=== PATIENT | male | born 1945 | race American Indian/Alaskan Native ===

== ENCOUNTER 2018-02-20 16:11 | Inpatient (IN) | payer MEDICARE ==
[2018-02-20] MEDS ORDERED: NACL 0.9% 500 ML 500 ML IV ONE (16:46)
[2018-02-20] MEDS ORDERED: TYLENOL PR STA (16:46)
[2018-02-20] MEDS ORDERED: NACL 0.9% 1000 ML 1,000 ML ONE (16:51)
--- NOTE | 2018-02-20 16:52 | Emergency Department Report ---
HPI - General Chief Complaint: Recheck/Abnormal Lab/Rx Time Seen by Provider: 02/20/18 16:48 - HPI HPI: 72-year-old Afro-[place] male presents to the emergency department via EMS from [facility] with complaints of decreased oral intake and some abnormal labs. The patient has a past medical history of dementia, [id number] diabetes, chronic encephalopathy, hemiplegia following subarachnoid hemorrhage, hypertension. Patient is listing at being nonverbal at baseline. He usually feeds with a pured diet. He presents with a large sacral decubitus ulcer. Patient is a prior historian. He presents with a fever. ED Past Medical Hx - Past Medical History Previous Medical History?: Yes Hx Hypertension: Yes Hx CVA: Yes (x5) Hx Diabetes: Yes Hx Dementia: Yes Additional medical history: subarachnoid hemorrhage - Social History Smoking Status: Unknown if ever smoked - Medications Home Medications: Home Medications Medication Instructions Recorded Confirmed Last Taken Type RX: Aspirin EC [Aspirin Enteric 81 mg PO QDAY #30 tablet 05/10/15 Unknown Rx Coated TAB] RX: Enoxaparin [Lovenox] 40 mg SUB-Q DAILY #7 syringe 05/10/15 Unknown Rx RX: Losartan [Cozaar] 50 mg PO QDAY #30 tablet 05/10/15 Unknown Rx ED Review of Systems ROS: Stated complaint: ABNORMAL LABS Other details as noted in HPI Comment: Unobtainable due to pts medical conditions Physical Exam - Physical Exam Vital Signs: Vital Signs 02/20/18 16:35 Temperature 102.2 F H Pulse Rate 96 H Respiratory 22 Rate Blood Pressure 112/94 [Left] O2 Sat by Pulse 96 Oximetry Physical Exam: GENERAL: The patient is well-developed well-nourished. HEENT: Normocephalic. Atraumatic. Patient has moist mucous membranes. EYES: Extraocular motions are intact. Pupils are equal and reactive to light bilaterally. NECK: Supple. Trachea is midline. CHEST/LUNGS: There is some rhonchi heard to the right base. Mild tachypnea but no accessory muscle use. There is no respiratory distress noted. HEART/CARDIOVASCULAR: Regular. There is no tachycardia. There is no obvious murmur. ABDOMEN: Abdomen is soft, nontender. Patient has normal bowel sounds. There is no abdominal distention. SKIN: Skin is warm and dry. NEURO: Patient is awake but nonverbal and confused. Withdraws from painful stimuli. MUSCULOSKELETAL: There is no tenderness or deformity. There is no evidence of acute injury. ED Course Vital Signs 02/20/18 16:35 Temperature 102.2 F H Pulse Rate 96 H Respiratory 22 Rate Blood Pressure 112/94 [Left] O2 Sat by Pulse 96 Oximetry ED Medical Decision Making - Lab Data Result diagrams: 02/20/18 16:52 02/20/18 21:09 - EKG Data -: EKG Interpreted by Me EKG shows normal: sinus rhythm, axis, intervals, QRS complexes (Q waves of the septal leads), ST-T waves Rate: normal - EKG Data When compared to previous EKG there are: no significant change Interpretation: unchanged when compared t (05/2015) - Radiology Data Radiology results: image reviewed interpreted by me: X-ray of the chest shows some infiltrate to the right perihilar and basilar area of the lungs. - Medical Decision Making Patient presents to the emergency department from his detention with some abnormal labs and a fever. Patient has sepsis secondary to pneumonia. He has hyponatremia, leukocytosis, elevated lactic acid level and some renal insufficiency. Blood and urine cultures have been sent and the patient was immediately started on antibiotics. He was given some IV fluid resuscitation. Chest x-ray shows right basilar pneumonia. He was accepted for admission by the hospitalist Dr. Rueda. - Differential Diagnosis Sepsis, Pneumonia, UTI, Viral URI Critical Care Time: No Critical care attestation.: If time is entered above; I have spent that time in minutes in the direct care of this critically ill patient, excluding procedure time. ED Disposition Clinical Impression: Hypernatremia Sepsis Qualifiers: Sepsis type: sepsis due to unspecified organism Qualified Code(s): A41.9 - Sepsis, unspecified organism Pneumonia Qualifiers: Pneumonia type: due to unspecified organism Laterality: right Lung location: lower lobe of lung Qualified Code(s): J18.1 - Lobar pneumonia, unspecified organism Acute renal failure Qualifiers: Acute renal failure type: unspecified Qualified Code(s): N17.9 - Acute kidney failure, unspecified Disposition: OP ADMIT IP TO THIS HOSP Is pt being admited?: Yes Condition: Serious Time of Disposition: 17:50
[2018-02-20] MEDS ORDERED: LEVAQUIN 750MG/150ML 750 MG/150 ML BAG IV ONE (16:54)
[2018-02-20 17:05] LABS: Basophils # (Auto) 0.1 K/mm3 (0.0-0.1); Basophils % (Auto) 0.6 % (0.0-1.8); Hematocrit 43.9 % (35.5-45.6); Hemoglobin 14.2 gm/dl (11.8-15.2); Lymphocytes # (Auto) 1.1 K/mm3 (1.2-5.4); Lymphocytes % (Auto) 6.6 % (13.4-35.0); Mean Corpuscular HGB Conc 32 % (32-34); Mean Corpuscular Volume 96 fl (84-94); Platelet Count 212 K/mm3 (140-440); Red Blood Count 4.56 M/mm3 (3.65-5.03); Red Cell Distribution Width 13.2 % (13.2-15.2)
[2018-02-20 17:15] LABS: INR 1.21 (0.87-1.13)
[2018-02-20 17:29] LABS: Albumin 3.5 g/dL (3.9-5); Calcium 9.3 mg/dL (8.4-10.2)
--- NOTE | 2018-02-20 17:35 | XRay Report ---
FINAL REPORT EXAM: XR CHEST 1V AP HISTORY: possible Sepsis TECHNIQUE: Chest single AP PRIORS: None. FINDINGS: There is focal increased density in the right infrahilar region. Left lung demonstrates no acute umana ges. The cardiac and mediastinal contours are unremarkable. No pleural fluid collection seen. The pul monary vasculature is unremarkable. IMPRESSION: Right lower lobe infiltrates suspect pneumonia. Continued followup recommended to document clearance
[2018-02-20] MEDS ORDERED: NACL 0.9% 1000 ML 1,000 ML IV ONE (20:04)
[2018-02-20] MEDS ORDERED: NACL 0.45% 1000 ML 1,000 ML IV SCH (21:00)
--- NOTE | 2018-02-20 21:08 | History and Physical Report ---
History of Present Illness Date of examination: 02/20/18 Date of admission: 02/20/18 17:50 Chief complaint: Decreased responsiveness for 1 day History of present illness: 72-year-old -[place] male resident of [facility] with history of hypertension ,cerebrovascular accident, diabetes and Dementia ,bed ridden sent from [place] for poor PO intake decreased responsiveness .No fever or chills.patient on pureed diet.No fever or Chills. Past Medical History Previous Medical History?: Yes Hypertension: Yes CVA: Yes (x5) Diabetes: Yes Dementia: Yes Additional medical history: subarachnoid hemorrhage Social History Smoking Status: Unknown if ever smoked Surgical History Not available Family History Htn Medications Home Medications: Home Medications Medication Instructions Recorded Confirmed Last Taken Type Aspirin EC [Aspirin Enteric Coated 81 mg PO QDAY #30 tablet 05/10/15 Unknown Rx TAB] Enoxaparin [Lovenox] 40 mg SUB-Q DAILY #7 syringe 05/10/15 Unknown Rx Losartan [Cozaar] 50 mg PO QDAY #30 tablet 05/10/15 Unknown Rx Review of systems ROS: Stated complaint: ABNORMAL LABS Other details as noted in HPI Comment: Unobtainable due to pts medical conditions Medications and Allergies Allergies Allergy/AdvReac Type Severity Reaction Status Date / Time No Known Allergies Allergy Verified 05/08/15 08:51 Home Medications Medication Instructions Recorded Confirmed Last Taken Type Aspirin EC [Aspirin Enteric Coated 81 mg PO QDAY #30 tablet 05/10/15 Unknown Rx TAB] Enoxaparin [Lovenox] 40 mg SUB-Q DAILY #7 syringe 05/10/15 Unknown Rx Losartan [Cozaar] 50 mg PO QDAY #30 tablet 05/10/15 Unknown Rx Active Meds: Active Medications Sodium Chloride (Nacl 0.9% 1000 Ml) 1,000 mls @ 999 mls/hr IV BOLUS ONE Stop: 02/20/18 21:04 Last Admin: 02/20/18 20:00 Dose: 999 mls/hr Documented by: Sodium Chloride (Nacl 0.45% 1000 Ml) 1,000 mls @ 125 mls/hr IV DIRECT REKHA Exam - Physical Exam Narrative exam: Unresponsive - Constitutional Vitals: Temp Pulse Resp BP Pulse Ox 97.7 F 91 H 18 94/56 96 02/20/18 20:28 02/20/18 20:00 02/20/18 20:28 02/20/18 20:28 02/20/18 20:00 General appearance: Present: no acute distress, well-nourished - EENT Eyes: Present: PERRL ENT: hearing intact, clear oral mucosa - Neck Neck: Present: supple, normal ROM - Respiratory Respiratory effort: normal Respiratory: bilateral: CTA - Cardiovascular Heart rate: 97 Rhythm: regular Heart Sounds: Present: S1 & S2. Absent: rub, click - Extremities Extremities: no ischemia, pulses intact, pulses symmetrical, No edema Peripheral Pulses: within normal limits - Abdominal General gastrointestinal: Present: soft, non-tender, non-distended, normal bowel sounds Male genitourinary: Present: normal - Rectal Rectal Exam: deferred - Integumentary Integumentary: Present: clear, warm, dry - Musculoskeletal Musculoskeletal: generalized weakness - Psychiatric Psychiatric: other (Not alert or oriented) - Neurologic Neurologic: moves all extremities, other (Decreased responsiveness) - Allied Health Allied health notes reviewed: nursing, case management Results - Labs CBC & Chem 7: 02/20/18 16:52 02/20/18 16:52 Labs: Laboratory Last Values WBC 16.3 K/mm3 (4.5-11.0) H 02/20/18 16:52 RBC 4.56 M/mm3 (3.65-5.03) 02/20/18 16:52 Hgb 14.2 gm/dl (11.8-15.2) 02/20/18 16:52 Hct 43.9 % (35.5-45.6) 02/20/18 16:52 MCV 96 fl (84-94) H 02/20/18 16:52 MCH 31 pg (28-32) 02/20/18 16:52 MCHC 32 % (32-34) 02/20/18 16:52 RDW 13.2 % (13.2-15.2) 02/20/18 16:52 Plt Count 212 K/mm3 (140-440) 02/20/18 16:52 Lymph % (Auto) 6.6 % (13.4-35.0) L 02/20/18 16:52 [place] % (Auto) 6.0 % (0.0-7.3) 02/20/18 16:52 Eos % (Auto) 0.0 % (0.0-4.3) 02/20/18 16:52 Baso % (Auto) 0.6 % (0.0-1.8) 02/20/18 16:52 Lymph # 1.1 K/mm3 (1.2-5.4) L 02/20/18 16:52 [place] # 1.0 K/mm3 (0.0-0.8) H 02/20/18 16:52 Eos # 0.0 K/mm3 (0.0-0.4) 02/20/18 16:52 Baso # 0.1 K/mm3 (0.0-0.1) 02/20/18 16:52 Seg Neutrophils % 86.8 % (40.0-70.0) H 02/20/18 16:52 Seg Neutrophils # 14.2 K/mm3 (1.8-7.7) H 02/20/18 16:52 PT 15.7 Sec. (12.2-14.9) H 02/20/18 16:52 INR 1.21 (0.87-1.13) H 02/20/18 16:52 VBG pH 7.383 (7.320-7.420) 02/20/18 16:52 Sodium 160 mmol/L (137-145) H 02/20/18 16:52 Potassium 4.5 mmol/L (3.6-5.0) 02/20/18 16:52 Chloride 116.8 mmol/L (98-107) H 02/20/18 16:52 Carbon Dioxide 28 mmol/L (22-30) 02/20/18 16:52 Anion Gap 20 mmol/L 02/20/18 16:52 BUN 69 mg/dL (9-20) H 02/20/18 16:52 Creatinine 2.2 mg/dL (0.8-1.5) H 02/20/18 16:52 Estimated GFR 36 ml/min 02/20/18 16:52 BUN/Creatinine Ratio 31 % 02/20/18 16:52 Glucose 134 mg/dL (75-100) H 02/20/18 16:52 POC Glucose 129 (70-105) H 02/20/18 16:34 Lactic Acid 3.20 mmol/L (0.7-2.0) H* 02/20/18 18:18 Calcium 9.3 mg/dL (8.4-10.2) 02/20/18 16:52 Total Bilirubin 1.50 mg/dL (0.1-1.2) H 02/20/18 16:52 AST 48 units/L (5-40) H 02/20/18 16:52 ALT 41 units/L (7-56) 02/20/18 16:52 Alkaline Phosphatase 89 units/L (35-129) 02/20/18 16:52 Total Protein 8.4 g/dL (6.3-8.2) H 02/20/18 16:52 Albumin 3.5 g/dL (3.9-5) L 02/20/18 16:52 Albumin/Globulin Ratio 0.7 % 02/20/18 16:52 - Imaging and Cardiology EKG: report reviewed (NSR 97 LVH ) Chest x-ray: report reviewed Imaging and Cardiology: CXR IMPRESSION: Right lower lobe infiltrates suspect pneumonia. Continued followup recommended to document clearance Assessment and Plan Advance Directives: Yes (full code) VTE prophylaxis?: Chemical Plan of care discussed with patient/family: Yes - Patient Problems (1) Sepsis Current Visit: Yes Status: Acute Qualifiers: Sepsis type: sepsis due to unspecified organism Qualified Code(s): A41.9 - Sepsis, unspecified organism Plan to address problem: IV ceftriaxone and Zithromax (2) Pneumonia Current Visit: Yes Status: Acute Qualifiers: Pneumonia type: due to unspecified organism Laterality: right Lung location: lower lobe of lung Qualified Code(s): J18.1 - Lobar pneumonia, unspecified organism Plan to address problem: IV ceftriaxone and Zithromax (3) Acute kidney injury Current Visit: Yes Status: Acute Plan to address problem: Secondary to possible ATN IV fluids for now Nephrology consult requested (4) Hypernatremia Current Visit: Yes Status: Acute Plan to address problem: Half normal saline for now Nephrology consult requested (5) Encephalopathy Onset Date: 05/09/15 Current Visit: No Status: Acute Plan to address problem: Acute encephalopathy secondary to sepsis pneumonia and hypernatremia (6) Failure to thrive in adult Onset Date: 05/12/15 Current Visit: No Status: Chronic Plan to address problem: Patient is unable to thrive May need PEG tube Will defer to primary team regarding discussion with family for PEG tube If they agree GI consult to be requested (7) HTN (hypertension) Onset Date: 05/12/15 Current Visit: No Status: Chronic Qualifiers: Hypertension type: essential hypertension Qualified Code(s): I10 - Essential (primary) hypertension Plan to address problem: Continue antihypertensives (8) Malnutrition Current Visit: Yes Status: Chronic Qualifiers: Protein-calorie malnutrition severity: moderate Plan to address problem: Malnutrition mild to moderate Dietitian consult requested (9) DVT prophylaxis Current Visit: No Status: Acute Plan to address problem: On Lovenox and GI prophylaxis
[2018-02-20] MEDS ORDERED: TYLENOL PO PRN (21:20)
[2018-02-20] MEDS ORDERED: SODIUM CHLORIDE FLUSH SYRINGE 10 ML IV PRN (21:20)
[2018-02-20] MEDS ORDERED: MORPHINE IV PRN (21:20)
[2018-02-20] MEDS ORDERED: ZOFRAN IV PRN (21:20)
[2018-02-20 21:37] LABS: Calcium 8.6 mg/dL (8.4-10.2)
[2018-02-21] MEDS: D5/0.45NS 1,000 ML IV SCH ×3 (00:28→18:29)
[2018-02-21] MEDS: ROCEPHIN/NS 1 GM/50 ML 1 GM/50 ML BAG IV SCH ×2 (00:30→22:28)
[2018-02-21] MEDS: PEPCID IV SCH ×3 (00:31→22:28)
[2018-02-21] MEDS: ZITHROMAX 500 MG in NACL 0.9% 250ML 250 ML IV SCH ×2 (00:31→22:27)
[2018-02-21] MEDS: SODIUM CHLORIDE FLUSH SYRINGE 10 ML IV SCH ×3 (00:33→22:29)
[2018-02-21 05:47] LABS: Basophils % (Auto) 0.2 % (0.0-1.8); Hematocrit 38.7 % (35.5-45.6); Hemoglobin 12.4 gm/dl (11.8-15.2); Lymphocytes # (Auto) 1.2 K/mm3 (1.2-5.4); Lymphocytes % (Auto) 7.9 % (13.4-35.0); Mean Corpuscular HGB Conc 32 % (32-34); Mean Corpuscular Volume 98 fl (84-94); Monocytes # (Auto) 1.1 K/mm3 (0.0-0.8); Platelet Count 178 K/mm3 (140-440); Red Blood Count 3.97 M/mm3 (3.65-5.03); Red Cell Distribution Width 13.4 % (13.2-15.2)
--- NOTE | 2018-02-21 07:57 | Ultrasound Report ---
ULTRASOUND RENAL BILATERAL HISTORY: Acute renal failure. TECHNIQUE: transabdominal ultrasound with color Doppler interrogation. COMPARISON: PET/CT dated 01/17/07. FINDINGS: The right kidney measures 8.9 x 3.3 x 4.3cm. Right renal cortex: 1.2cm. The left kidney measures 9.1 x 4.2 x 4.3cm. Left renal cortex: 2.1cm. The kidneys are at the lower limit of normal size. There is increased renal cortical echotexture bilaterally consistent with nonspecific renal parenchymal disease. Corticomedullary differentiation is preserved. Within the superior right kidney, a 5 mm calyceal stone is identified. No associated hydronephrosis. Within the left kidney, 3 cysts are identified measuring 3.9 cm, 1.0 cm and 1.0 cm. No evidence for mass or perinephric fluid. The bladder is partially empty but unremarkable. [place] for a penile pump lateral to the right bladder wall is noted. IMPRESSION: Borderline atrophic kidneys with increased echotexture. Consider early chronic renal parenchymal disease. Nonobstructing right renal stone measuring 5 mm. 3 simple cysts in the left kidney.
--- NOTE | 2018-02-21 08:08 | Consultation ---
History of Present Illness - Reason for Consult Consult date: 02/21/18 acute renal failure - History of Present Illness The patient is a 72 YO AAM with medical history significant for DM-2, HTN, Dementia, chronic encephalopathy and hemiplegia following subarachnoid hemorrhage who was sent to the emergency department via EMS from [facility] with complaints of decreased oral intake and abnormal labs. The patient is nonverbal and unable to obtain any history from him. On presentation his temp was 102.2 and BP was 79/52. Creatinine was 2.2 with Sodium of 160. Nephrology was consulted for further evaluation. Past History Past Medical History: diabetes, hyperlipidemia, other (chronic encephalopathy, hemiplegia following subarachnoid hemorrhage, dementia) Medications and Allergies Allergies Allergy/AdvReac Type Severity Reaction Status Date / Time No Known Allergies Allergy Verified 05/08/15 08:51 Home Medications Medication Instructions Recorded Confirmed Last Taken Type Aspirin EC [Aspirin Enteric Coated 81 mg PO QDAY #30 tablet 05/10/15 Unknown Rx TAB] Enoxaparin [Lovenox] 40 mg SUB-Q DAILY #7 syringe 05/10/15 Unknown Rx Losartan [Cozaar] 50 mg PO QDAY #30 tablet 05/10/15 Unknown Rx Active Meds: Active Medications Acetaminophen (Tylenol) 650 mg PO Q4H PRN PRN Reason: Pain MILD(1-3)/Fever >100.5/PATEL Famotidine (Pepcid) 10 mg IV BID [facility] Last Admin: 02/21/18 00:31 Dose: 10 mg Documented by: Ceftriaxone Sodium (Rocephin/Ns 1 Gm/50 Ml) 1 gm in 50 mls @ 100 mls/hr IV Q24H [facility]; Protocol Last Admin: 02/21/18 00:30 Dose: 100 mls/hr Documented by: Azithromycin 500 mg/ Sodium (Chloride) 250 mls @ 250 mls/hr IV Q24HR@2200 REKHA Last Admin: 02/21/18 00:31 Dose: 250 mls/hr Documented by: Dextrose/Sodium Chloride (D5/0.45ns) 1,000 mls @ 150 mls/hr IV DIRECT [facility] Last Admin: 02/21/18 00:28 Dose: 150 mls/hr Documented by: Morphine Sulfate (Morphine) 2 mg IV Q4H PRN PRN Reason: Pain, Moderate (4-6) Ondansetron HCl (Zofran) 4 mg IV Q8H PRN PRN Reason: Nausea And Vomiting Sodium Chloride (Sodium Chloride Flush Syringe 10 Ml) 10 ml IV BID REKHA Last Admin: 02/21/18 00:33 Dose: 10 ml Documented by: Sodium Chloride (Sodium Chloride Flush Syringe 10 Ml) 10 ml IV PRN PRN PRN Reason: LINE FLUSH Review of Systems ROS unobtainable: due to mental status Exam - Vital Signs Vital signs: Vital Signs Pulse Resp 97 H 18 02/20/18 16:34 02/20/18 16:34 - General Appearance General appearance: well-developed, appears stated age, other (not in distress) EENT: ATNC Neck: Present: trachea midline Respiratory: Clear to Ascultation Heart: regular, S1S2, no murmurs Gastrointestinal: Present: normoactive bowel sounds. Absent: tenderness, distended Integumentary: no rash Neurologic: other (appears alert, not responding) Musculoskeletal: Present: other (no edema) Results - Lab Results 02/21/18 05:05 02/21/18 18:14 Most recent lab results Calcium 8.6 mg/dL (8.4-10.2) 02/20/18 21:09 - Image Kidney/bladder ultrasound: report reviewed Assessment and Plan 1. Acute kidney injury: Likely Vasomotor / hemodynamic [place] in the setting of volume depletion and hypotension. Renal US was negative for hydronephrosis. Continue IV fluids. Monitor renal function. 2. FEN: Continue IV fluids. Hypernatremia, 1/2 NS. 3. Sepsis: Pneumonia. 4. Adult failure to thrive. 5. Dementia.
--- NOTE | 2018-02-21 09:31 | Progress Note ---
Assessment and Plan Assessment and plan: 72-year-old -[place] male resident of [facility] with history of hypertension ,cerebrovascular accident, diabetes and Dementia ,bed ridden sent from [place] for poor PO intake decreased responsiveness .No fever or chills.patient on pureed diet.No fever or Chills.on admission was noted to have hypernatermia and Acute kidney injury among other lab abnormalities Sepsis secondary to pneumonia Severe Sepsis with Shock Acute On chronic Metabolic Encephalopathy Acute Kidney injury with vasomotor nephropathy Hypernatermia Lactic acidosis Failure to thrive Severe Protien calorie malnutrition Anorexia Bed bound HTN but currently hypotensive Plan Continue supportive care May need NGT with free water will defer to Nephrology Alternative Financing Specialist consult- May need consideration for PEG if no improvement Continue abx, IV ceftriaxone and zithromax and follow cultures Urinalysis still pending DVT/GI prophy History Interval history: Patient seen and examined, no new complaints reported. Hospitalist Physical - Physical exam Narrative exam: VITAL SIGNS: Reviewed. GENERAL: The patient appeared chronically ill appearing. Vital signs as documented. HEAD: No signs of head trauma. marked temporal wasting. EYES: Pupils are equal. Extraocular motions intact. EARS: Hearing grossly intact. MOUTH: Oropharynx is normal. NECK: No adenopathy, no JVD. CHEST: Chest with diminshed breath sounds bilaterally. No wheezes, rales, or rhonchi. CARDIAC: Regular rate and rhythm. S1 and S2, without murmurs, gallops, or rubs. VASCULAR: Trace Edema. Peripheral pulses normal and equal in all extremities. ABDOMEN: Soft, without detectable tenderness. No sign of distention. No rebound or guarding, and no masses palpated. Bowel Sounds normal. MUSCULOSKELETAL: Good range of motion of all major joints. Extremities without clubbing, cyanosis or trace edema. NEUROLOGIC EXAM: awake and oriented x 3 PSYCHIATRIC: Mood normal. SKIN: sacral pressure ulcer - Constitutional Vitals: Temp Pulse Resp BP Pulse Ox 97.6 F 78 22 105/61 92 02/21/18 07:55 02/21/18 08:16 02/21/18 08:16 02/21/18 07:55 02/21/18 08:16 General appearance: Present: no acute distress, well-nourished Results - Labs CBC & Chem 7: 02/21/18 05:05 02/20/18 21:09 Labs: Laboratory Last Values WBC 15.6 K/mm3 (4.5-11.0) H 02/21/18 05:05 RBC 3.97 M/mm3 (3.65-5.03) 02/21/18 05:05 Hgb 12.4 gm/dl (11.8-15.2) 02/21/18 05:05 Hct 38.7 % (35.5-45.6) 02/21/18 05:05 MCV 98 fl (84-94) H 02/21/18 05:05 MCH 31 pg (28-32) 02/21/18 05:05 MCHC 32 % (32-34) 02/21/18 05:05 RDW 13.4 % (13.2-15.2) 02/21/18 05:05 Plt Count 178 K/mm3 (140-440) 02/21/18 05:05 Lymph % (Auto) 7.9 % (13.4-35.0) L 02/21/18 05:05 [place] % (Auto) 7.0 % (0.0-7.3) 02/21/18 05:05 Eos % (Auto) 0.0 % (0.0-4.3) 02/21/18 05:05 Baso % (Auto) 0.2 % (0.0-1.8) 02/21/18 05:05 Lymph # 1.2 K/mm3 (1.2-5.4) 02/21/18 05:05 [place] # 1.1 K/mm3 (0.0-0.8) H 02/21/18 05:05 Eos # 0.0 K/mm3 (0.0-0.4) 02/21/18 05:05 Baso # 0.0 K/mm3 (0.0-0.1) 02/21/18 05:05 Seg Neutrophils % 84.9 % (40.0-70.0) H 02/21/18 05:05 Seg Neutrophils # 13.2 K/mm3 (1.8-7.7) H 02/21/18 05:05 PT 15.7 Sec. (12.2-14.9) H 02/20/18 16:52 INR 1.21 (0.87-1.13) H 02/20/18 16:52 VBG pH 7.383 (7.320-7.420) 02/20/18 16:52 Sodium 159 mmol/L (137-145) H 02/20/18 21:09 Potassium 3.9 mmol/L (3.6-5.0) 02/20/18 21:09 Chloride 119.8 mmol/L (98-107) H 02/20/18 21:09 Carbon Dioxide 29 mmol/L (22-30) 02/20/18 21:09 Anion Gap 14 mmol/L 02/20/18 21:09 BUN 70 mg/dL (9-20) H 02/20/18 21:09 Creatinine 1.9 mg/dL (0.8-1.5) H 02/20/18 21:09 Estimated GFR 42 ml/min 02/20/18 21:09 BUN/Creatinine Ratio 37 % 02/20/18 21:09 Glucose 122 mg/dL (75-100) H 02/20/18 21:09 POC Glucose 129 (70-105) H 02/20/18 16:34 Hemoglobin A1c 5.7 % (4-6) 02/20/18 16:52 Lactic Acid 1.80 mmol/L (0.7-2.0) 02/20/18 21:09 Calcium 8.6 mg/dL (8.4-10.2) 02/20/18 21:09 Total Bilirubin 1.50 mg/dL (0.1-1.2) H 02/20/18 16:52 AST 48 units/L (5-40) H 02/20/18 16:52 ALT 41 units/L (7-56) 02/20/18 16:52 Alkaline Phosphatase 89 units/L (35-129) 02/20/18 16:52 Total Protein 8.4 g/dL (6.3-8.2) H 02/20/18 16:52 Albumin 3.5 g/dL (3.9-5) L 02/20/18 16:52 Albumin/Globulin Ratio 0.7 % 02/20/18 16:52
[2018-02-21 12:54] LABS: Creatinine,Urine 99.5 mg/dL (0.1-20.0)
[2018-02-21 12:57] LABS: Bacteria,Urine 1+ /HPF (Negative); Bilirubin,Urine NEG (Negative); Blood,Urine MOD (Negative); Color,Urine Yellow (Yellow); Mucus,Urine FEW /HPF; Urobilinogen,Urine < 2.0 mg/dL (<2.0)
[2018-02-22] MEDS: D5/0.45NS 1,000 ML IV SCH ×2 (02:37→18:01)
[2018-02-22 05:31] LABS: Hematocrit 35.9 % (35.5-45.6); Hemoglobin 11.5 gm/dl (11.8-15.2); Mean Corpuscular HGB Conc 32 % (32-34); Mean Corpuscular Volume 97 fl (84-94); Platelet Count 171 K/mm3 (140-440); Red Blood Count 3.68 M/mm3 (3.65-5.03); Red Cell Distribution Width 13.1 % (13.2-15.2)
[2018-02-22 05:46] LABS: BUN/Creatinine Ratio 40; Blood Urea Nitrogen 40 mg/dL (9-20); Calcium 8.7 mg/dL (8.4-10.2); Hemolysis Index 5
[2018-02-22] MEDS ORDERED: KPHOS 30 MMOL in NACL 0.9% 500 ML 500 ML IV ONE (08:30)
--- NOTE | 2018-02-22 09:14 | Progress Note ---
Assessment and Plan Assessment and plan: 72-year-old -[place] male resident of [facility] with history of hypertension, cerebrovascular accident, diabetes and Dementia ,bed ridden sent from [place] for poor PO intake decreased responsiveness .No fever or chills.patient on pureed diet. No fever or Chills.on admission was noted to have hypernatermia and Acute kidney injury among other lab abnormalities. Sepsis secondary to pneumonia Severe Sepsis with Shock Acute Cystits with MRSA Acute On chronic Metabolic Encephalopathy Acute Kidney injury with vasomotor nephropathy Hypernatermia Lactic acidosis Failure to thrive Severe Protein calorie malnutrition Anorexia Bed bound HTN but currently hypotensive Plan Continue supportive care Change to Vancomycin, Pharmacy to dose Per FAMILY, Patient has been on liquids via stray since January Front Tender input note noted. Advised family about clinical status and future thought process. Stop Rocephin Place contact isolation Place dobhoff and start free water, Discussed with Nephrology Front Tender consult May need consideration for PEG if no improvement DVT/GI prophy History Interval history: Patient seen and examined, patient is very emaciated and nonverbal. According to family patient, we will be able to set one up to worse although not coherent. Has gradually declined more so since January. Hospitalist Physical - Physical exam Narrative exam: VITAL SIGNS: Reviewed. GENERAL: The patient appeared chronically ill appearing. Vital signs as documented. HEAD: No signs of head trauma. marked temporal wasting. EYES: Pupils are equal. Extraocular motions intact. EARS: Hearing grossly intact. MOUTH: Oropharynx is normal. NECK: No adenopathy, no JVD. CHEST: Chest with diminshed breath sounds bilaterally. No wheezes, rales, or rhonchi. CARDIAC: Regular rate and rhythm. S1 and S2, without murmurs, gallops, or rubs. VASCULAR: Trace Edema. Peripheral pulses normal and equal in all extremities. ABDOMEN: Soft, without detectable tenderness. No sign of distention. No rebound or guarding, and no masses palpated. Bowel Sounds normal. MUSCULOSKELETAL: Good range of motion of all major joints. Extremities without clubbing, cyanosis or trace edema. NEUROLOGIC EXAM: Awake but unable to assess orientation PSYCHIATRIC: Unable to assess SKIN: sacral pressure ulcer - Constitutional Vitals: Temp Pulse Resp BP Pulse Ox 99.8 F H 80 20 113/55 97 02/22/18 08:29 02/22/18 08:29 02/22/18 08:29 02/22/18 08:29 02/22/18 08:29 General appearance: Present: no acute distress, well-nourished Results - Labs CBC & Chem 7: 02/22/18 04:56 02/22/18 04:56 Labs: Laboratory Last Values WBC 16.7 K/mm3 (4.5-11.0) H 02/22/18 04:56 RBC 3.68 M/mm3 (3.65-5.03) 02/22/18 04:56 Hgb 11.5 gm/dl (11.8-15.2) L 02/22/18 04:56 Hct 35.9 % (35.5-45.6) 02/22/18 04:56 MCV 97 fl (84-94) H 02/22/18 04:56 MCH 31 pg (28-32) 02/22/18 04:56 MCHC 32 % (32-34) 02/22/18 04:56 RDW 13.1 % (13.2-15.2) L 02/22/18 04:56 Plt Count 171 K/mm3 (140-440) 02/22/18 04:56 Lymph % (Auto) 7.9 % (13.4-35.0) L 02/21/18 05:05 [place] % (Auto) 7.0 % (0.0-7.3) 02/21/18 05:05 Eos % (Auto) 0.0 % (0.0-4.3) 02/21/18 05:05 Baso % (Auto) 0.2 % (0.0-1.8) 02/21/18 05:05 Lymph # 1.2 K/mm3 (1.2-5.4) 02/21/18 05:05 [place] # 1.1 K/mm3 (0.0-0.8) H 02/21/18 05:05 Eos # 0.0 K/mm3 (0.0-0.4) 02/21/18 05:05 Baso # 0.0 K/mm3 (0.0-0.1) 02/21/18 05:05 Seg Neutrophils % 84.9 % (40.0-70.0) H 02/21/18 05:05 Seg Neutrophils # 13.2 K/mm3 (1.8-7.7) H 02/21/18 05:05 PT 15.7 Sec. (12.2-14.9) H 02/20/18 16:52 INR 1.21 (0.87-1.13) H 02/20/18 16:52 VBG pH 7.383 (7.320-7.420) 02/20/18 16:52 Sodium 158 mmol/L (137-145) H 02/22/18 04:56 Potassium 4.1 mmol/L (3.6-5.0) 02/22/18 04:56 Chloride 123.3 mmol/L (98-107) H 02/22/18 04:56 Carbon Dioxide 25 mmol/L (22-30) 02/22/18 04:56 Anion Gap 14 mmol/L 02/22/18 04:56 BUN 40 mg/dL (9-20) H 02/22/18 04:56 Creatinine 1.0 mg/dL (0.8-1.5) 02/22/18 04:56 Estimated GFR > 60 ml/min 02/22/18 04:56 BUN/Creatinine Ratio 40 % 02/22/18 04:56 Glucose 124 mg/dL (75-100) H 02/22/18 04:56 POC Glucose 129 (70-105) H 02/20/18 16:34 Hemoglobin A1c 5.7 % (4-6) 02/20/18 16:52 Lactic Acid 1.80 mmol/L (0.7-2.0) 02/20/18 21:09 Calcium 8.7 mg/dL (8.4-10.2) 02/22/18 04:56 Phosphorus 2.40 mg/dL (2.5-4.5) L 02/22/18 04:56 Magnesium 2.60 mg/dL (1.7-2.3) H 02/22/18 04:56 Total Bilirubin 1.50 mg/dL (0.1-1.2) H 02/20/18 16:52 AST 48 units/L (5-40) H 02/20/18 16:52 ALT 41 units/L (7-56) 02/20/18 16:52 Alkaline Phosphatase 89 units/L (35-129) 02/20/18 16:52 Total Creatine Kinase 307 units/L (55-170) H 02/22/18 04:56 Total Protein 8.4 g/dL (6.3-8.2) H 02/20/18 16:52 Albumin 3.5 g/dL (3.9-5) L 02/20/18 16:52 Albumin/Globulin Ratio 0.7 % 02/20/18 16:52 Urine Color Yellow (Yellow) 02/21/18 Unknown Urine Turbidity Cloudy (Clear) 02/21/18 Unknown Urine pH 5.0 (5.0-7.0) 02/21/18 Unknown Ur Specific [place] 1.017 (1.003-1.030) 02/21/18 Unknown Urine Protein 30 mg/dl mg/dL (Negative) 02/21/18 Unknown Urine Glucose (UA) Neg mg/dL (Negative) 02/21/18 Unknown Urine Ketones Neg mg/dL (Negative) 02/21/18 Unknown Urine Blood Mod (Negative) 02/21/18 Unknown Urine Nitrite Neg (Negative) 02/21/18 Unknown Urine Bilirubin Neg (Negative) 02/21/18 Unknown Urine Urobilinogen < 2.0 mg/dL (<2.0) 02/21/18 Unknown Ur Leukocyte Esterase Lg (Negative) 02/21/18 Unknown Urine WBC (Auto) 91.0 /HPF (0.0-6.0) H 02/21/18 Unknown Urine RBC (Auto) 34.0 /HPF (0.0-6.0) 02/21/18 Unknown U Epithel Cells (Auto) 7.0 /HPF (0-13.0) 02/21/18 Unknown Urine Bacteria (Auto) 1+ /HPF (Negative) 02/21/18 Unknown Urine Mucus Few /HPF 02/21/18 Unknown Urine Creatinine 99.5 mg/dL (0.1-20.0) H 02/21/18 Unknown Urine Sodium 40 mmol/L 02/21/18 Unknown Nutrition/Malnutrition Assess - Dietary Evaluation Nutrition/Malnutrition Findings: Nutrition Notes Start: 02/21/18 11:21 Freq: Status: Active Protocol: Document 02/21/18 11:26 CT (Rec: 02/21/18 13:15 CT [id number]) Co-Sign 02/21/18 11:26 RM Nutrition Notes Need for Assessment generated from: MD Order Initial or Follow up Assessment Current Diagnoses Acute Kidney Injury Diabetes Sepsis Hypertension Stroke Other Pertinent Diagnosis dementia, encephalopathy, pneumonia, sacral PU Current Diet NPO Labs/Tests BG 122 AST 48 Medications reviewed. Height 5 ft 11 in Weight 52.5 kg [place] Body Weight (lbs) 172.0 BMI 16.1 Weight Status Underweight Subjective/Other Information RD screen for Malnutrition. Pt nonverbal and unresponsive at time of vist. Pt appears emaciated and signs of mild temporal wasting are visible. RN unsure why pt is NPO. Burn Absent Trauma Absent #1 Nutrition Diagnoses Predicted suboptimal energy intake Etiology dementia, encephalopathy As Evidenced by Signs and Symptoms mild temporal wasting, BMI 16. 1 Is patient on ventilator? No Is Patient Ambulatory and/or Out of Bed No REE-([facility]-confined to bed) 1551.024 Kcal/Kg value to use for calculation 35 Approximate Energy Requirements Using 1838 kcal/Kg Calculation Used for Recommendations Kcal/kg Additional Notes PRO: (1.2 - 1.5g/ kg) 63 - 79g PRO/daily Fluid: 1mL/kcal Nutrition Intervention Change Diet Order: Advance diet when medically feasible. Add Supplement/Snack (indicate name/kcal Glucerna daily /protein ) Provides kCal: 220 Provides Protein (gm) 10 Goal #1 Diet Advancement Anticipated Discharge Needs: Consistent CHO Follow-Up By: 02/24/18 Additional Comments F/U: diet advancement - Attestation Statement I have reviewed and agreed w/ Malnutrition eval & tx plan: Yes
--- NOTE | 2018-02-22 09:22 | Progress Note ---
Assessment and Plan 1. Acute kidney injury: Likely Vasomotor / hemodynamic SHELLEY in the setting of volume depletion and hypotension. Renal US was negative for hydronephrosis. Renal function is improving. Continue IV fluids. Monitor renal function. 2. FEN: Continue IV fluids. Hypernatremia, 1/2 NS. Replete Phos. 3. Sepsis: Pneumonia. 4. Adult failure to thrive. 5. Dementia. Subjective Date of service: 02/22/18 Interval history: Patient was seen and examined at the bedside. Objective - Vital Signs Vital signs: Vital Signs - 12hr 02/21/18 02/22/18 02/22/18 22:00 02:34 08:29 Temperature 99.3 F 99.8 F H Pulse Rate 78 80 Pulse Rate [ 81 Right Brachial] Respiratory 20 18 20 Rate Blood Pressure 84/38 113/55 O2 Sat by Pulse 92 93 97 Oximetry 02/22/18 08:58 Temperature Pulse Rate Pulse Rate [ 82 Right Brachial] Respiratory Rate Blood Pressure O2 Sat by Pulse 94 Oximetry - General Appearance General appearance: well-developed, appears stated age, other (not in distress) EENT: ATNC Respiratory: Present: Clear to Ascultation Cardiology: regular, S1S2, no murmurs Gastrointestinal: normoactive bowel sounds, no tenderness, no distended Integumentary: no rash, warm and dry Neurologic: aphasia, other (not following any command, appears awake) Musculoskeletal: other (no edema) - Lab 02/22/18 04:56 02/22/18 04:56 Most recent lab results Calcium 8.7 mg/dL (8.4-10.2) 02/22/18 04:56 Phosphorus 2.40 mg/dL (2.5-4.5) L 02/22/18 04:56 Magnesium 2.60 mg/dL (1.7-2.3) H 02/22/18 04:56 Urine Creatinine 99.5 mg/dL (0.1-20.0) H 02/21/18 Unknown Urine Sodium 40 mmol/L 02/21/18 Unknown Medications & Allergies - Medications Allergies/Adverse Reactions: Allergies No Known Allergies Allergy (Verified 05/08/15 08:51) Home Medications: Home Medications Medication Instructions Recorded Confirmed Last Taken Type Aspirin EC [Aspirin Enteric Coated 81 mg PO QDAY #30 tablet 05/10/15 Unknown Rx TAB] Enoxaparin [Lovenox] 40 mg SUB-Q DAILY #7 syringe 05/10/15 Unknown Rx Losartan [Cozaar] 50 mg PO QDAY #30 tablet 05/10/15 Unknown Rx Active Medications: Generic Name Dose Route Start Last Admin Trade Name Wmq PRN Reason Stop Dose Admin Acetaminophen 650 mg 02/20/18 21:20 Tylenol PO Q4H PRN Pain MILD(1-3)/Fever >100.5/PATEL Famotidine 10 mg 02/20/18 22:00 02/21/18 22:28 Pepcid IV 10 mg BID REKHA Administration Dextrose/Sodium Chloride 1,000 mls @ 150 mls/hr 02/20/18 22:00 02/22/18 02:37 D5/0.45ns IV 150 mls/hr DIRECT REKHA Administration Potassium Phosphate 30 mmol/ 510 mls @ 83 mls/hr 02/22/18 08:30 Sodium Chloride IV 02/22/18 14:38 ONCE ONE Morphine Sulfate 2 mg 02/20/18 21:20 Morphine IV Q4H PRN Pain, Moderate (4-6) Ondansetron HCl 4 mg 02/20/18 21:20 Zofran IV Q8H PRN Nausea And Vomiting Sodium Chloride 10 ml 02/20/18 22:00 02/21/18 22:29 Sodium Chloride Flush Syringe 10 Ml IV 10 ml BID RKEHA Administration Sodium Chloride 10 ml 02/20/18 21:20 Sodium Chloride Flush Syringe 10 Ml IV PRN PRN LINE FLUSH
[2018-02-22] MEDS ORDERED: VANCOMYCIN PHARMACY TO DOSE IV SCH (10:00)
[2018-02-22] MEDS: PEPCID IV SCH ×2 (10:14→21:45)
[2018-02-22] MEDS: SODIUM CHLORIDE FLUSH SYRINGE 10 ML IV SCH ×2 (10:14→21:50)
[2018-02-22] MEDS ORDERED: VANCOMYCIN/NS 1 GM/250 ML 1 GM/250 ML BAG IV SCH (12:00)
--- NOTE | 2018-02-22 14:46 | XRay Report ---
KUB: 02/22/18 13:34 CLINICAL: Feeding tube placement. FINDINGS: The Dobbhoff tube tip is in the left upper quadrant and is directed toward the left hemidiaphragm.A large sliding of stool throughout the colon and in the rectum. Moderate distention of the mid colon and less distention of small bowel. No pneumoperitoneum. IMPRESSION: Satisfactory placement of the feeding tube within the stomach. I expect that the tip will rotate inferiorly toward the more distal stomach.
[2018-02-22] MEDS: FREE WATER PO SCH ×2 (15:15→18:41)
--- NOTE | 2018-02-22 16:13 | XRay Report ---
FINAL REPORT PROCEDURE: Abdomen. TECHNIQUE: Single AP view. HISTORY: Dobhoff tube placement verification. COMPARISON: No prior studies are available for comparison. FINDINGS: The radiograph is centered on the diaphragm. There is a Dobhoff tube looped in the stomach. The bowel gas pattern is unremarkable as far as visualized. The soft tissues and regional skeleton are unremar kable. IMPRESSION: Satisfactory Dobhoff tube placement.
[2018-02-22] MEDS ORDERED: ZITHROMAX PO SCH (22:00)
[2018-02-23] MEDS: D5/0.45NS 1,000 ML IV SCH (02:06)
--- NOTE | 2018-02-23 04:26 | XRay Report ---
FINAL REPORT PROCEDURE: XR ABDOMEN 1V AP TECHNIQUE: AP supine portable radiograph of the abdomen was obtained at 02/23/2018 03:58 (EST) . HISTORY: dobhoff placement COMPARISON: No prior studies are available for comparison. FINDINGS: Bowel gas pattern: Nonobstructive. Masses or calcifications: None. Bony structures: Normal. Other: There is an NG tube in the stomach. There is right lower lobe pulmonary mass or infiltrate. IMPRESSION: The NG tube is in the stomach.
[2018-02-23] MEDS: FREE WATER PO SCH ×4 (06:20→17:25)
[2018-02-23 06:29] LABS: BUN/Creatinine Ratio 29; Blood Urea Nitrogen 23 mg/dL (9-20); Calcium 8.3 mg/dL (8.4-10.2); Hemolysis Index 52
--- NOTE | 2018-02-23 07:49 | Progress Note ---
Assessment and Plan Assessment and plan: 72-year-old -[place] male resident of [facility] with history of hypertension, cerebrovascular accident, diabetes and Dementia ,bed ridden sent from [place] for poor PO intake decreased responsiveness .No fever or chills.patient on pureed diet. No fever or Chills.on admission was noted to have hypernatermia and Acute kidney injury among other lab abnormalities. Sepsis secondary to pneumonia Severe Sepsis with Shock Right lobar Pneumonia Acute Cystits with MRSA Acute On chronic Metabolic Encephalopathy Acute Kidney injury with vasomotor nephropathy Hypernatermia Lactic acidosis Large sacral decubitus ulcer- unstageable POA Failure to thrive Severe Protein calorie malnutrition Anorexia Bed bound HTN but currently hypotensive Plan Continue supportive care Change to D5W Family now wants to speak to Hospice and hold off oon PEG tube placement Change to Vancomycin, Pharmacy to dose Notified by Nursing staff about Positive GNR in blood. Will obtain ID consult secondary to multiple organism. Per FAMILY, Patient has been on liquids via stray since January Work Car Operator input note noted. Advised family about clinical status and future thought process. Stop Rocephin Place contact isolation Work Car Operator consult DVT/GI prophy History Interval history: Patient seen and examined, patient is very emaciated and nonverbal. no change. Hospitalist Physical - Physical exam Narrative exam: VITAL SIGNS: Reviewed. GENERAL: The patient appeared chronically ill appearing. Vital signs as documented. HEAD: No signs of head trauma. marked temporal wasting. EYES: Pupils are equal. Extraocular motions intact. EARS: Hearing grossly intact. MOUTH: Oropharynx is normal. NECK: No adenopathy, no JVD. CHEST: Chest with diminshed breath sounds bilaterally. No wheezes, rales, or rhonchi. CARDIAC: Regular rate and rhythm. S1 and S2, without murmurs, gallops, or rubs. VASCULAR: Trace Edema. Peripheral pulses normal and equal in all extremities. ABDOMEN: Soft, without detectable tenderness. No sign of distention. No rebound or guarding, and no masses palpated. Bowel Sounds normal. MUSCULOSKELETAL: Good range of motion of all major joints. Extremities without clubbing, cyanosis or trace edema. NEUROLOGIC EXAM: Awake but unable to assess orientation PSYCHIATRIC: Unable to assess SKIN: sacral pressure ulcer - Constitutional Vitals: Temp Pulse Resp BP Pulse Ox 100.0 F H 87 20 123/83 100 02/23/18 02:12 02/23/18 02:12 02/23/18 02:53 02/23/18 02:12 02/23/18 02:12 General appearance: Present: no acute distress, well-nourished Results - Labs CBC & Chem 7: 02/23/18 08:01 02/23/18 05:28 Labs: Laboratory Last Values WBC 16.7 K/mm3 (4.5-11.0) H 02/22/18 04:56 RBC 3.68 M/mm3 (3.65-5.03) 02/22/18 04:56 Hgb 11.5 gm/dl (11.8-15.2) L 02/22/18 04:56 Hct 35.9 % (35.5-45.6) 02/22/18 04:56 MCV 97 fl (84-94) H 02/22/18 04:56 MCH 31 pg (28-32) 02/22/18 04:56 MCHC 32 % (32-34) 02/22/18 04:56 RDW 13.1 % (13.2-15.2) L 02/22/18 04:56 Plt Count 171 K/mm3 (140-440) 02/22/18 04:56 Lymph % (Auto) 7.9 % (13.4-35.0) L 02/21/18 05:05 [place] % (Auto) 7.0 % (0.0-7.3) 02/21/18 05:05 Eos % (Auto) 0.0 % (0.0-4.3) 02/21/18 05:05 Baso % (Auto) 0.2 % (0.0-1.8) 02/21/18 05:05 Lymph # 1.2 K/mm3 (1.2-5.4) 02/21/18 05:05 [place] # 1.1 K/mm3 (0.0-0.8) H 02/21/18 05:05 Eos # 0.0 K/mm3 (0.0-0.4) 02/21/18 05:05 Baso # 0.0 K/mm3 (0.0-0.1) 02/21/18 05:05 Seg Neutrophils % 84.9 % (40.0-70.0) H 02/21/18 05:05 Seg Neutrophils # 13.2 K/mm3 (1.8-7.7) H 02/21/18 05:05 PT 15.7 Sec. (12.2-14.9) H 02/20/18 16:52 INR 1.21 (0.87-1.13) H 02/20/18 16:52 VBG pH 7.383 (7.320-7.420) 02/20/18 16:52 Sodium 156 mmol/L (137-145) H 02/23/18 05:28 Potassium 4.2 mmol/L (3.6-5.0) 02/23/18 05:28 Chloride 120.5 mmol/L (98-107) H 02/23/18 05:28 Carbon Dioxide 24 mmol/L (22-30) 02/23/18 05:28 Anion Gap 16 mmol/L 02/23/18 05:28 BUN 23 mg/dL (9-20) H 02/23/18 05:28 Creatinine 0.8 mg/dL (0.8-1.5) 02/23/18 05:28 Estimated GFR > 60 ml/min 02/23/18 05:28 BUN/Creatinine Ratio 29 % 02/23/18 05:28 Glucose 136 mg/dL (75-100) H 02/23/18 05:28 POC Glucose 129 (70-105) H 02/20/18 16:34 Hemoglobin A1c 5.7 % (4-6) 02/20/18 16:52 Lactic Acid 1.80 mmol/L (0.7-2.0) 02/20/18 21:09 Calcium 8.3 mg/dL (8.4-10.2) L 02/23/18 05:28 Phosphorus 3.00 mg/dL (2.5-4.5) D 02/23/18 05:28 Magnesium 2.60 mg/dL (1.7-2.3) H 02/22/18 04:56 Total Bilirubin 1.50 mg/dL (0.1-1.2) H 02/20/18 16:52 AST 48 units/L (5-40) H 02/20/18 16:52 ALT 41 units/L (7-56) 02/20/18 16:52 Alkaline Phosphatase 89 units/L (35-129) 02/20/18 16:52 Total Creatine Kinase 307 units/L (55-170) H 02/22/18 04:56 Total Protein 8.4 g/dL (6.3-8.2) H 02/20/18 16:52 Albumin 3.5 g/dL (3.9-5) L 02/20/18 16:52 Albumin/Globulin Ratio 0.7 % 02/20/18 16:52 Urine Color Yellow (Yellow) 02/21/18 Unknown Urine Turbidity Cloudy (Clear) 02/21/18 Unknown Urine pH 5.0 (5.0-7.0) 02/21/18 Unknown Ur Specific [place] 1.017 (1.003-1.030) 02/21/18 Unknown Urine Protein 30 mg/dl mg/dL (Negative) 02/21/18 Unknown Urine Glucose (UA) Neg mg/dL (Negative) 02/21/18 Unknown Urine Ketones Neg mg/dL (Negative) 02/21/18 Unknown Urine Blood Mod (Negative) 02/21/18 Unknown Urine Nitrite Neg (Negative) 02/21/18 Unknown Urine Bilirubin Neg (Negative) 02/21/18 Unknown Urine Urobilinogen < 2.0 mg/dL (<2.0) 02/21/18 Unknown Ur Leukocyte Esterase Lg (Negative) 02/21/18 Unknown Urine WBC (Auto) 91.0 /HPF (0.0-6.0) H 02/21/18 Unknown Urine RBC (Auto) 34.0 /HPF (0.0-6.0) 02/21/18 Unknown U Epithel Cells (Auto) 7.0 /HPF (0-13.0) 02/21/18 Unknown Urine Bacteria (Auto) 1+ /HPF (Negative) 02/21/18 Unknown Urine Mucus Few /HPF 02/21/18 Unknown Urine Creatinine 99.5 mg/dL (0.1-20.0) H 02/21/18 Unknown Urine Sodium 40 mmol/L 02/21/18 Unknown Nutrition/Malnutrition Assess - Dietary Evaluation Nutrition/Malnutrition Findings: Nutrition Notes Start: 02/21/18 11:21 Freq: Status: Active Protocol: Document 02/21/18 11:26 CT (Rec: 02/21/18 13:15 CT [id number]) Co-Sign 02/21/18 11:26 RM Nutrition Notes Need for Assessment generated from: MD Order Initial or Follow up Assessment Current Diagnosis Acute Kidney Injury Diabetes Sepsis Hypertension Stroke Other Pertinent Diagnosis dementia, encephalopathy, pneumonia, sacral PU Current Diet NPO Labs/Tests BG 122 AST 48 Pertinent Medications reviewed. Height 5 ft 11 in Weight 52.5 kg [place] Body Weight (lbs) 172.0 BMI 16.1 Weight Status Underweight Subjective/Other Information RD screen for Malnutrition. Pt nonverbal and unresponsive at time of vist. Pt appears emaciated and signs of mild temporal wasting are visible. RN unsure why pt is NPO. Burn Absent Trauma Absent #1 Nutrition Diagnosis Predicted suboptimal energy intake Etiology dementia, encephalopathy As Evidenced by Signs and Symptoms mild temporal wasting, BMI 16. 1 Is patient on ventilator? No Is Patient Ambulatory and/or Out of Bed No REE-([facility]-confined to bed) 1551.024 Kcal/Kg value to use for calculation 35 Approximate Energy Requirements Using 1838 kcal/Kg Calculation Used for Recommendations Kcal/kg Additional Notes PRO: (1.2 - 1.5g/ kg) 63 - 79g PRO/daily Fluid: 1mL/kcal Nutrition Intervention Change Diet Order: Advance diet when medically feasible. Add Supplement/Snack (indicate name/kcal Glucerna daily /protein ) Provides kCal: 220 Provides Protein (gm) 10 Goal #1 Diet Advancement Anticipated Discharge Needs: Consistent CHO Follow-Up By: 02/24/18 Additional Comments F/U: diet advancement
[2018-02-23 08:42] LABS: Hematocrit 30.2 % (35.5-45.6); Hemoglobin 9.6 gm/dl (11.8-15.2); Mean Corpuscular HGB Conc 32 % (32-34); Mean Corpuscular Volume 98 fl (84-94); Platelet Count 191 K/mm3 (140-440); Red Blood Count 3.08 M/mm3 (3.65-5.03); Red Cell Distribution Width 13.1 % (13.2-15.2)
[2018-02-23 09:35] LABS: Basophils % (Manual) 0 % (0.0-1.8); Eosinophils % (Manual) 0 % (0.0-4.3); Total Cells Counted 100
[2018-02-23 09:37] LABS: Anisocytosis 1+; Ovalocytes Few; Platelet Estimate Consistent w Auto
--- NOTE | 2018-02-23 09:43 | Progress Note ---
Assessment and Plan 1. Acute kidney injury: Likely Vasomotor / hemodynamic SHELLEY in the setting of volume depletion and hypotension. Renal US was negative for hydronephrosis. Renal function is better. Continue IV fluids. Monitor renal function. 2. FEN: Continue IV fluids. Hypernatremia, 1/2 NS and water flushes. 3. Sepsis: Pneumonia. 4. Adult failure to thrive. 5. Dementia. Subjective Date of service: 02/23/18 Interval history: Patient was seen and examined at the bedside. Objective - Vital Signs Vital signs: Vital Signs - 12hr 02/22/18 02/23/18 02/23/18 22:00 02:12 02:53 Temperature 100.0 F H Pulse Rate 87 Pulse Rate [ 86 Right Brachial] Respiratory 22 20 20 Rate Blood Pressure 123/83 O2 Sat by Pulse 100 Oximetry 02/23/18 02/23/18 03:53 08:41 Temperature 99.1 F Pulse Rate 77 Pulse Rate [ Right Brachial] Respiratory 20 18 Rate Blood Pressure 107/51 O2 Sat by Pulse 100 Oximetry - General Appearance General appearance: well-developed, appears stated age, other (not in distress, emaciated, NG feeding tube noted) EENT: ATNC Respiratory: Present: Clear to Ascultation Cardiology: regular, S1S2, no murmurs Gastrointestinal: normoactive bowel sounds, no tenderness, no distended Integumentary: no rash, warm and dry Neurologic: other (barely arousable) Musculoskeletal: other (no edema) - Lab 02/23/18 08:01 02/23/18 05:28 Most recent lab results Calcium 8.3 mg/dL (8.4-10.2) L 02/23/18 05:28 Phosphorus 3.00 mg/dL (2.5-4.5) D 02/23/18 05:28 Magnesium 2.60 mg/dL (1.7-2.3) H 02/22/18 04:56 Urine Creatinine 99.5 mg/dL (0.1-20.0) H 02/21/18 Unknown Urine Sodium 40 mmol/L 02/21/18 Unknown Medications & Allergies - Medications Allergies/Adverse Reactions: Allergies No Known Allergies Allergy (Verified 05/08/15 08:51) Home Medications: Home Medications Medication Instructions Recorded Confirmed Last Taken Type Aspirin EC [Aspirin Enteric Coated 81 mg PO QDAY #30 tablet 05/10/15 02/23/18 Unknown Rx TAB] Enoxaparin [Lovenox] 40 mg SUB-Q DAILY #7 syringe 05/10/15 02/23/18 Unknown Rx Losartan [Cozaar] 50 mg PO QDAY #30 tablet 05/10/15 02/23/18 Unknown Rx Active Medications: Generic Name Dose Route Start Last Admin Trade Name Freq PRN Reason Stop Dose Admin Acetaminophen 650 mg 02/20/18 21:20 02/23/18 02:53 Tylenol PO 650 mg Q4H PRN Administration Pain MILD(1-3)/Fever >100.5/PATEL Famotidine 10 mg 02/20/18 22:00 02/22/18 21:45 Pepcid IV 10 mg BID REKHA Administration Dextrose 1,000 mls @ 100 mls/hr 02/23/18 09:30 D5w IV DIRECT REKHA Ceftriaxone Sodium 1 gm in 50 mls @ 100 mls/hr 02/23/18 10:00 Rocephin/Ns 1 Gm/50 Ml IV Q24HR REKHA Protocol Vancomycin HCl 1 gm in 250 mls @ 166.667 mls/hr 02/23/18 14:00 Vancomycin/Ns 1 Gm/250 Ml IV Q24H REKHA Morphine Sulfate 2 mg 02/20/18 21:20 Morphine IV Q4H PRN Pain, Moderate (4-6) Ondansetron HCl 4 mg 02/20/18 21:20 Zofran IV Q8H PRN Nausea And Vomiting Sodium Chloride 10 ml 02/20/18 22:00 02/22/18 21:50 Sodium Chloride Flush Syringe 10 Ml IV 10 ml BID REKHA Administration Sodium Chloride 10 ml 02/20/18 21:20 Sodium Chloride Flush Syringe 10 Ml IV PRN PRN LINE FLUSH
[2018-02-23] MEDS: ROCEPHIN/NS 1 GM/50 ML 1 GM/50 ML BAG IV SCH (10:22)
[2018-02-23] MEDS: SODIUM CHLORIDE FLUSH SYRINGE 10 ML IV SCH ×2 (10:23→21:10)
[2018-02-23] MEDS: PEPCID IV SCH ×2 (10:23→21:10)
[2018-02-23] MEDS: D5W 1,000 ML IV SCH (10:23)
--- NOTE | 2018-02-23 10:40 | Consultation ---
History of Present Illness - Reason for Consult Consult date: 02/23/18 Sepsis Requesting physician: BOB BARBOUR - History of Present Illness This patient is a 72 year old male with a past medical history of dementia, Type 2 diabetes, chronic encephalopathy, hemiplegia following subarachnoid hemorrhage and hypertension who present [facility] the ED [facility] from [facility] with complaints of decreased oral intake and abnormal labs. Patient is nonverbal at baseline and feeds with a pureed diet. Upon further examination , he was found to have a large sacral decubitus ulceration. On admission WBC 16.3, Creatinine 2.2, Lactic Acid 3.2, Creatinine Kinase 307, Temperature 102.2, HR 97, BP 79/50. U/S was consistent with a UTI. Urine culture was positive for MRSA, B lood cultures show not growth thus far. Chest xray shows right lower lobe infiltrates, left lung shows no acute changes. Renal ultrasound is negative for hydronephrosis, however nonobstructing right renal stone measuring 5mm and 3 simple cysts in the left kidney. Also medial records indicate that patient has a penile implant. Unable to obtain history, patient nonverbal at baseline, no family at bedside. Past History Past Medical History: diabetes, hyperlipidemia, other (chronic encephalopathy, hemiplegia following subarachnoid hemorrhage, dementia) Medications and Allergies Allergies Allergy/AdvReac Type Severity Reaction Status Date / Time No Known Allergies Allergy Verified 05/08/15 08:51 Home Medications Medication Instructions Recorded Confirmed Last Taken Type Aspirin EC [Aspirin Enteric Coated 81 mg PO QDAY #30 tablet 05/10/15 Unknown Rx TAB] Enoxaparin [Lovenox] 40 mg SUB-Q DAILY #7 syringe 05/10/15 Unknown Rx Losartan [Cozaar] 50 mg PO QDAY #30 tablet 05/10/15 Unknown Rx Active Meds: Active Medications Acetaminophen (Tylenol) 650 mg PO Q4H PRN PRN Reason: Pain MILD(1-3)/Fever >100.5/PATEL Last Admin: 02/23/18 02:53 Dose: 650 mg Documented by: Famotidine (Pepcid) 10 mg IV BID [facility] Last Admin: 02/23/18 10:23 Dose: 10 mg Documented by: Dextrose (D5w) 1,000 mls @ 100 mls/hr IV DIRECT [facility] Last Admin: 02/23/18 10:23 Dose: 100 mls/hr Documented by: Ceftriaxone Sodium (Rocephin/Ns 1 Gm/50 Ml) 1 gm in 50 mls @ 100 mls/hr IV Q24HR [facility]; Protocol Last Admin: 02/23/18 10:22 Dose: 100 mls/hr Documented by: Vancomycin HCl (Vancomycin/Ns 1 Gm/250 Ml) 1 gm in 250 mls @ 166.667 mls/hr IV Q24H [facility] Morphine Sulfate (Morphine) 2 mg IV Q4H PRN PRN Reason: Pain, Moderate (4-6) Ondansetron HCl (Zofran) 4 mg IV Q8H PRN PRN Reason: Nausea And Vomiting Sodium Chloride (Sodium Chloride Flush Syringe 10 Ml) 10 ml IV BID [facility] Last Admin: 02/23/18 10:23 Dose: 10 ml Documented by: Sodium Chloride (Sodium Chloride Flush Syringe 10 Ml) 10 ml IV PRN PRN PRN Reason: LINE FLUSH Review of Systems ROS unobtainable: due to mental status Physical Examination - Physical Exam Narrative exam: Constitutional: Somnolent. Nonverbal at baseline. No acute distress observed Head, Ears, Nose: Normocephalic, atraumatic. External ears, nose normal Eyes: Conjunctivae/corneas clear. No icterus. No ptosis. Neck: Supple, no meningeal signs Oral: unable to assess, exam limited Cardiovascular: S1, S2 normal. Respiratory: Good air entry, clear to auscultation bilaterally GI: Soft, non-tender; bowel sounds normal. No peritoneal signs, +NG tube : +condom cath. +penile implant Musculoskeletal: No pedal edema, no cyanosis. Skin: No rash or abscess, unstageable sacral wound Hem/Lymphatic: No palpable cervical or supraclavicular nodes. No lymphangitis Psych: Somnolent, nonverbal at baseline Neurological: Somnolent. - Constitutional Vitals: Vital Signs Temp Pulse Resp BP Pulse Ox 99.1 F 77 18 107/51 100 02/23/18 08:41 02/23/18 08:41 02/23/18 08:41 02/23/18 08:41 02/23/18 08:41 Temperature -Last 24 Hours Temperature 99.1 F Temperature 100.0 F Temperature 98.9 F Temperature 99.3 F Results - Labs CBC & Chem 7: 02/23/18 08:01 02/23/18 05:28 Labs: Abnormal lab results 02/23/18 02/23/18 Range/Units 05:28 08:01 WBC 13.4 H (4.5-11.0) K/mm3 RBC 3.08 L (3.65-5.03) M/mm3 Hgb 9.6 L (11.8-15.2) gm/dl Hct 30.2 L (35.5-45.6) % MCV 98 H (84-94) fl RDW 13.1 L (13.2-15.2) % Seg Neuts % (Manual) 93.0 H (40.0-70.0) % Lymphocytes % (Manual) 4.0 L (13.4-35.0) % Seg Neutrophils # Man 12.5 H (1.8-7.7) K/mm3 Lymphocytes # (Manual) 0.5 L (1.2-5.4) K/mm3 Sodium 156 H (137-145) mmol/L Chloride 120.5 H (98-107) mmol/L BUN 23 H (9-20) mg/dL Glucose 136 H (75-100) mg/dL Calcium 8.3 L (8.4-10.2) mg/dL Assessment and Plan Imaging 02/20/2018 Chest: Right lower lobe infiltrates suspect pneumonia. Left lung demonstrates no acute changes. 02/20/2018 Renal Ultrasound: early chronic renal parenchymal disease. Nonobstructing right renal stone measuring 5 mm. 3 simple cysts in the left kidney.. No associated hydronephrosis. Cultures Blood: Gram negative ROds 1 out of 4 bottles 02/20/2018 Urine: MRSA, also resistant to levofloxacin, Penicillin and Bactrim A/P: 72-year-old SNF resident with a history of dementia, Type 2 diabetes, chronic encephalopathy, hemiplegia following subarachnoid hemorrhage and hypertension admitted with: 1. Severe Sepsis and Septic Shock : On admission evidenced by leukocytosis, temperature, hypotentsion and tachycardia and lactic acidosis, Etiology MRSA in urine, also resistant to fluoroquinolone, Penicillin and Bactrim, + RLL pnuemonia. Currently being teated with Ceftriaxone and Vancomycin. 2. 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 Blood cultures growing gram negative rods is not consistent with MRSA in urine. 3. Gram Negative Rods Bacteremia: source unclear, possible UTI however urine culture grew MRSA, other possibilities pneumonia due to H. flu. or intrabdominal source ? GB ? diverticulitis vs sacral ulcer infection. 4. Right Lower Lobe Pneumonia - ?HAP ?aspiration 5. Large Sacral Decubitus ulcer- ? unstagable or DTI 6. SHELLEY - nephrology following 7. Acute on Chronic metabolic Encephalopathy 8. Severe Protein Calorie malnutrition Plan: check CT abd/pelvis eval source of bacteremia- GB, sacral ulcer/abscess/penile implant infection f/u Blood cultures F/u urine cultures order CRP, ESR Continue wound care Continue Ceftriaxone and Vancomycin Will obtain Urology consult to evaluate complicated UTI with penile implant d/w Dr. Mic Dickey, [facility] M: [phone] O:[phone]
[2018-02-23] MEDS ORDERED: VANCOMYCIN 750 MG in NACL 0.9% 250ML 250 ML IV SCH (12:30)
[2018-02-23] MEDS ORDERED: VANCOMYCIN/NS 1 GM/250 ML 1 GM/250 ML BAG IV SCH (14:00)
--- NOTE | 2018-02-23 15:37 | Consultation ---
History of Present Illness - Reason for Consult Consult date: 02/23/18 - History of Present Illness This patient is a 72 year old male with a past medical history of dementia, Type 2 diabetes, chronic encephalopathy, hemiplegia following subarachnoid hemorrhage and hypertension who present to the ED on 02/20/18 from [facility] with complaints of decreased oral intake and abnormal labs. Patient is nonverbal at baseline and feeds with a pureed diet. Upon further examination , he was found to have a large sacral decubitus ulceration. On admission WBC 16.3, Creatinine 2.2, Lactic Acid 3.2, Creatinine Kinase 307, Temperature 102.2, HR 97, BP 79/50. U/S was consistent with a UTI. Urine culture was positive for MRSA, Blood cultures show not growth thus far. Chest xray shows right lower lobe infiltrates, left lung shows no acute changes. Renal ultrasound is negative for hydronephrosis, however nonobstructing right renal stone measuring 5mm and 3 simple cysts in the left kidney. Also medial records indicate that patient has a penile implant. renal us - renal cyst no hydro abd soft + IPP (coloplast type) normal (no erosion) nurse to replace condom cath a/P UTI PELVIC CT Past History Past Medical History: diabetes, hyperlipidemia, other (chronic encephalopathy, hemiplegia following subarachnoid hemorrhage, dementia) Medications and Allergies Allergies Allergy/AdvReac Type Severity Reaction Status Date / Time No Known Allergies Allergy Verified 05/08/15 08:51 Home Medications Medication Instructions Recorded Confirmed Last Taken Type Aspirin EC [Aspirin Enteric Coated 81 mg PO QDAY #30 tablet 05/10/15 Unknown Rx TAB] Enoxaparin [Lovenox] 40 mg SUB-Q DAILY #7 syringe 05/10/15 Unknown Rx Losartan [Cozaar] 50 mg PO QDAY #30 tablet 05/10/15 Unknown Rx Active Meds: Active Medications Acetaminophen (Tylenol) 650 mg PO Q4H PRN PRN Reason: Pain MILD(1-3)/Fever >100.5/PATEL Last Admin: 02/23/18 02:53 Dose: 650 mg Documented by: Famotidine (Pepcid) 10 mg IV BID [facility] Last Admin: 02/23/18 10:23 Dose: 10 mg Documented by: Dextrose (D5w) 1,000 mls @ 100 mls/hr IV DIRECT [facility] Last Admin: 02/23/18 10:23 Dose: 100 mls/hr Documented by: Ceftriaxone Sodium (Rocephin/Ns 1 Gm/50 Ml) 1 gm in 50 mls @ 100 mls/hr IV Q24HR [facility]; Protocol Last Admin: 02/23/18 10:22 Dose: 100 mls/hr Documented by: Vancomycin HCl (Vancomycin/Ns 1 Gm/250 Ml) 1 gm in 250 mls @ 166.667 mls/hr IV Q24H [facility] Last Admin: 02/23/18 14:53 Dose: 166.667 mls/hr Documented by: Morphine Sulfate (Morphine) 2 mg IV Q4H PRN PRN Reason: Pain, Moderate (4-6) Ondansetron HCl (Zofran) 4 mg IV Q8H PRN PRN Reason: Nausea And Vomiting Sodium Chloride (Sodium Chloride Flush Syringe 10 Ml) 10 ml IV BID [facility] Last Admin: 02/23/18 10:23 Dose: 10 ml Documented by: Sodium Chloride (Sodium Chloride Flush Syringe 10 Ml) 10 ml IV PRN PRN PRN Reason: LINE FLUSH Exam - Constitutional Vitals: Temp Pulse Resp BP Pulse Ox 99.6 F 71 18 109/52 100 02/23/18 14:05 02/23/18 14:05 02/23/18 14:05 02/23/18 14:05 02/23/18 14:05 Results - Labs CBC & Chem 7: 02/23/18 08:01 02/23/18 05:28 Labs: Abnormal lab results 02/23/18 02/23/18 Range/Units 05:28 08:01 WBC 13.4 H (4.5-11.0) K/mm3 RBC 3.08 L (3.65-5.03) M/mm3 Hgb 9.6 L (11.8-15.2) gm/dl Hct 30.2 L (35.5-45.6) % MCV 98 H (84-94) fl RDW 13.1 L (13.2-15.2) % Seg Neuts % (Manual) 93.0 H (40.0-70.0) % Lymphocytes % (Manual) 4.0 L (13.4-35.0) % Seg Neutrophils # Man 12.5 H (1.8-7.7) K/mm3 Lymphocytes # (Manual) 0.5 L (1.2-5.4) K/mm3 Sodium 156 H (137-145) mmol/L Chloride 120.5 H (98-107) mmol/L BUN 23 H (9-20) mg/dL Glucose 136 H (75-100) mg/dL Calcium 8.3 L (8.4-10.2) mg/dL
--- NOTE | 2018-02-23 21:42 | Cat Scan Report ---
FINAL REPORT PROCEDURE: CT abdomen and pelvis with contrast. TECHNIQUE: Computerized axial tomography of the abdomen and pelvis was performed after the IV inject ion of iodinated nonionic contrast. HISTORY: Evaluate source of gram negative rods, wound, penile implant. COMPARISON: No prior studies are available for comparison. FINDINGS: There is incompletely imaged consolidation in the infrahilar region of the right lung. This involves portions of the right middle lobe and right lower lobe. There may be a few small rounded cavities wit hin this consolidation. The findings are consistent with pneumonia. Clinical correlation and follow-u p imaging are recommended. The left lung base is clear. There is a small right pleural effusion and a trace amount of left pleural fluid. The heart size is normal. The liver, pancreas and spleen appear normal. The gallbladder is present. There is no biliary dilatation. The adrenal glands are not enlarg ed. There is a large left renal cyst. The abdominal aorta has a normal caliber. There is no retroperi toneal adenopathy. There is a Dobhoff feeding tube that terminates in the stomach. The metallic end o f this tube causes severe streak artifact. The unopacified gastrointestinal tract is grossly normal. There is a large amount of fecal material in the rectosigmoid colon. The appendix is not visualized a nd may have been removed. The bladder and seminal vesicles appear normal. There are calcifications in the prostate. There is a penile prosthesis. There is a fluid reservoir in the right side of the pelv is. There is an old fracture of the left inferior pubic ramus. There are a few tiny bubbles of gas th at may be within patient's skin. These are seen on images 71 through 75 of series 4. These are locate d close to the intergluteal cleft, close to the coccyx. I see no evidence of a soft tissue abscess no r open wound. Direct visual examination is suggested. IMPRESSION: Probable pneumonia in the right middle and lower lobes as described. Small right pleural effusion and trace amount of left pleural fluid. Large left renal cyst. Question few tiny bubbles within the skin near the intergluteal cleft as described above.
[2018-02-24] MEDS: FREE WATER PO SCH ×3 (01:04→13:09)
[2018-02-24 06:15] LABS: Hematocrit 31.3 % (35.5-45.6); Hemoglobin 10.1 gm/dl (11.8-15.2); Mean Corpuscular HGB Conc 32 % (32-34); Mean Corpuscular Volume 97 fl (84-94); Platelet Count 206 K/mm3 (140-440); Red Blood Count 3.23 M/mm3 (3.65-5.03); Red Cell Distribution Width 12.8 % (13.2-15.2)
[2018-02-24 06:36] LABS: BUN/Creatinine Ratio 19; Blood Urea Nitrogen 15 mg/dL (9-20); Calcium 8.2 mg/dL (8.4-10.2); Hemolysis Index 31
--- NOTE | 2018-02-24 08:35 | Progress Note ---
Assessment and Plan Imaging 02/20/2018 Chest: Right lower lobe infiltrates suspect pneumonia. Left lung demonstrates no acute changes. 02/20/2018 Renal Ultrasound: early chronic renal parenchymal disease. Nonobstructing right renal stone measuring 5 mm. 3 simple cysts in the left kidney.. No associated hydronephrosis 02/23/2018: CT Abdomen/Pelvis: +penile implant, No evidence of soft tissue abscess. Large left renal cyst. Small right pleural effusion and trace amount of left pleural fluid. Cultures Blood: Proteus 02/20/2018 Urine: MRSA, also resistant to levofloxacin, Penicillin and Bactrim A/P: 72-year-old SNF resident with a history of dementia, Type 2 diabetes, chronic encephalopathy, hemiplegia following subarachnoid hemorrhage and hypertension admitted with: 1. Severe Sepsis and Septic Shock: Improved , on admission evidenced by leukocytosis, temperature, hypotentsion and tachycardia and lactic acidosis, Etiology MRSA in urine, also resistant to fluoroquinolone, Penicillin and Bactrim, + RLL pnuemonia. Currently being teated with Ceftriaxone and Vancom ycin. 2. Urinary Tract Infection with history of penile implant - urine culture grew M RSA which is not a common uropathogen unless penile implant is infected, most likely this may represent MRSA urine colonization. Blood cultures growing proteus, is not consistent with MRSA in urine. Inflatable Penile Prosthesis intact, no erosion. Urology following. 3. Proteus Bacteremia: source unclear, possible UTI however urine culture grew MRSA, other possibilities pneumonia due to H. flu. or intrabdominal source ? GB ? diverticulitis vs sacral ulcer infection. 4. Right Lower Lobe Pneumonia - ?HAP ?aspiration. Small right pleural effusion and trace amount of left pleural fluid. 5. Large Sacral Decubitus ulcer- unstageable. CT showed no evidence of soft tissue abscess. CRP 18.8 6. SHELLEY - nephrology following 7. Acute on Chronic metabolic Encephalopathy 8. Severe Protein Calorie malnutrition Plan: f/u Blood cultures F/u urine cultures Continue wound care Continue Ceftriaxone D5 Continue Vancomycin D3 will change to oral antibiotics upon discharge Dr. Haile will be compensation vice president this weekend, she can be reached at [phone]. [facility] M: [phone] O:[phone] Subjective Date of service: 02/24/18 Interval history: Patient seen and examined. Nonverbal at baseline. No acute distress observed. Nurses notes, labs, imaging and reports reviewed. No family at bedside. Objective - Exam Narrative Exam: Constitutional: Somnolent. Nonverbal at baseline. No acute distress observed Head, Ears, Nose: Normocephalic, atraumatic. External ears, nose normal Eyes: Conjunctivae/corneas clear. No icterus. No ptosis. Neck: Supple, no meningeal signs Oral: unable to assess, exam limited Cardiovascular: S1, S2 normal. Respiratory: Good air entry, clear to auscultation bilaterally GI: Soft, non-tender; bowel sounds normal. No peritoneal signs, +NG tube : +condom cath. +penile implant Musculoskeletal: No pedal edema, no cyanosis. Skin: No rash or abscess, unstageable sacral wound Hem/Lymphatic: No palpable cervical or supraclavicular nodes. No lymphangitis Psych: Somnolent, nonverbal at baseline Neurological: Somnolent. - Constitutional Vitals: Vital Signs Temp Pulse Resp BP Pulse Ox 98.0 F 76 20 141/67 100 02/24/18 08:04 02/24/18 08:04 02/24/18 08:04 02/24/18 08:04 02/24/18 08:04 Temperature -Last 24 Hours Temperature 98.0 F Temperature 97.0 F Temperature 98.1 F Temperature 99.6 F Temperature 99.1 F - Labs CBC & Chem 7: 02/24/18 05:53 02/24/18 05:53 Labs: Abnormal lab results 02/23/18 02/23/18 02/24/18 Range/Units 08:01 15:42 05:53 WBC 13.4 H 11.8 H (4.5-11.0) K/mm3 RBC 3.08 L 3.23 L (3.65-5.03) M/mm3 Hgb 9.6 L 10.1 L (11.8-15.2) gm/dl Hct 30.2 L 31.3 L (35.5-45.6) % MCV 98 H 97 H (84-94) fl RDW 13.1 L 12.8 L (13.2-15.2) % Seg Neuts % (Manual) 93.0 H (40.0-70.0) % Lymphocytes % (Manual) 4.0 L (13.4-35.0) % Seg Neutrophils # Man 12.5 H (1.8-7.7) K/mm3 Lymphocytes # (Manual) 0.5 L (1.2-5.4) K/mm3 Sodium (137-145) mmol/L Chloride (98-107) mmol/L Calcium (8.4-10.2) mg/dL Phosphorus (2.5-4.5) mg/dL C-Reactive Protein 18.80 H (0.00-1.30) mg/dL 02/24/18 Range/Units 05:53 WBC (4.5-11.0) K/mm3 RBC (3.65-5.03) M/mm3 Hgb (11.8-15.2) gm/dl Hct (35.5-45.6) % MCV (84-94) fl RDW (13.2-15.2) % Seg Neuts % (Manual) (40.0-70.0) % Lymphocytes % (Manual) (13.4-35.0) % Seg Neutrophils # Man (1.8-7.7) K/mm3 Lymphocytes # (Manual) (1.2-5.4) K/mm3 Sodium 149 H (137-145) mmol/L Chloride 116.1 H (98-107) mmol/L Calcium 8.2 L (8.4-10.2) mg/dL Phosphorus 2.30 L D (2.5-4.5) mg/dL C-Reactive Protein (0.00-1.30) mg/dL
--- NOTE | 2018-02-24 08:47 | Progress Note ---
Assessment and Plan 1. Acute kidney injury: Likely Vasomotor / hemodynamic SHELLEY in the setting of volume depletion and hypotension. Renal US was negative for hydronephrosis. Renal function is better. Continue IV fluids. Monitor renal function. 2. FEN: Continue IV fluids. Hypernatremia, 1/2 NS and water flushes. Replete Phos. 3. Sepsis: Pneumonia. 4. Adult failure to thrive. 5. Dementia. Subjective Date of service: 02/24/18 Interval history: Patient was seen and examined at the bedside. Objective - Vital Signs Vital signs: Vital Signs - 12hr 02/23/18 02/24/18 02/24/18 22:00 02:56 08:04 Temperature 97.0 F L 98.0 F Pulse Rate 80 76 Respiratory 18 20 Rate Blood Pressure 127/56 141/67 O2 Sat by Pulse 92 100 100 Oximetry - General Appearance General appearance: well-developed, appears stated age, other (not in distress, NG tube noted) EENT: ATNC Respiratory: Present: Clear to Ascultation Cardiology: regular, S1S2, no murmurs Gastrointestinal: normoactive bowel sounds, no tenderness, no distended Integumentary: no rash, warm and dry Neurologic: aphasia, other (not responding) Musculoskeletal: other (no edema) - Lab 02/24/18 05:53 02/24/18 05:53 Most recent lab results Calcium 8.2 mg/dL (8.4-10.2) L 02/24/18 05:53 Phosphorus 2.30 mg/dL (2.5-4.5) L D 02/24/18 05:53 Magnesium 2.60 mg/dL (1.7-2.3) H 02/22/18 04:56 Urine Creatinine 99.5 mg/dL (0.1-20.0) H 02/21/18 Unknown Urine Sodium 40 mmol/L 02/21/18 Unknown Medications & Allergies - Medications Allergies/Adverse Reactions: Allergies No Known Allergies Allergy (Verified 05/08/15 08:51) Home Medications: Home Medications Medication Instructions Recorded Confirmed Last Taken Type Aspirin EC [Aspirin Enteric Coated 81 mg PO QDAY #30 tablet 05/10/15 02/23/18 Unknown Rx TAB] Enoxaparin [Lovenox] 40 mg SUB-Q DAILY #7 syringe 05/10/15 02/23/18 Unknown Rx Losartan [Cozaar] 50 mg PO QDAY #30 tablet 05/10/15 02/23/18 Unknown Rx Doxycycline Hyclate [Doxycycline 100 mg PO Q12HR #6 tab 02/24/18 Unknown Rx Hyclate TAB] cephALEXin [Keflex] 500 mg PO QID #12 cap 02/24/18 Unknown Rx Active Medications: Generic Name Dose Route Start Last Admin Trade Name Freq PRN Reason Stop Dose Admin Acetaminophen 650 mg 02/20/18 21:20 02/23/18 02:53 Tylenol PO 650 mg Q4H PRN Administration Pain MILD(1-3)/Fever >100.5/PATEL Famotidine 10 mg 02/20/18 22:00 02/23/18 21:10 Pepcid IV 10 mg BID [facility] Administration Dextrose 1,000 mls @ 100 mls/hr 02/23/18 09:30 02/23/18 10:23 D5w IV 100 mls/hr DIRECT [facility] Administration Ceftriaxone Sodium 1 gm in 50 mls @ 100 mls/hr 02/23/18 10:00 02/23/18 19:00 Rocephin/Ns 1 Gm/50 Ml IV Infused Q24HR [facility] Infusion Protocol Vancomycin HCl 1 gm in 250 mls @ 166.667 mls/hr 02/23/18 14:00 02/23/18 19:00 Vancomycin/Ns 1 Gm/250 Ml IV Infused Q24H [facility] Morphine Sulfate 2 mg 02/20/18 21:20 Morphine IV Q4H PRN Pain, Moderate (4-6) Ondansetron HCl 4 mg 02/20/18 21:20 Zofran IV Q8H PRN Nausea And Vomiting Sodium Chloride 10 ml 02/20/18 22:00 02/23/18 21:10 Sodium Chloride Flush Syringe 10 Ml IV 10 ml BID [facility] Administration Sodium Chloride 10 ml 02/20/18 21:20 Sodium Chloride Flush Syringe 10 Ml IV PRN PRN LINE FLUSH
[2018-02-24] MEDS: D5W 1,000 ML IV SCH (08:48)
[2018-02-24] MEDS ORDERED: KPHOS 15 MMOL in NACL 0.9% 250ML 250 ML IV ONE (08:48)
[2018-02-24] MEDS: ROCEPHIN/NS 1 GM/50 ML 1 GM/50 ML BAG IV SCH (10:25)
[2018-02-24] MEDS: SODIUM CHLORIDE FLUSH SYRINGE 10 ML IV SCH (10:26)
[2018-02-24] MEDS: PEPCID IV SCH (10:26)
--- NOTE | 2018-02-24 11:58 | Progress Note ---
Subjective Date of service: 02/24/18 Interval history: This patient is a 72 year old male with a past medical history of dementia, Type 2 diabetes, chronic encephalopathy, hemiplegia following subarachnoid hemorrhage and hypertension who present to the ED on 02/20/18 from [facility] with complaints of decreased oral intake and abnormal labs. Patient is nonverbal at baseline and feeds with a pureed diet. Upon further examination , he was found to have a large sacral decubitus ulceration. On admission WBC 16.3, Creatinine 2.2, Lactic Acid 3.2, Creatinine Kinase 307, Temperature 102.2, HR 97, BP 79/50. U/S was consistent with a UTI. Urine culture was positive for MRSA, Blood cultures show not growth thus far. Chest xray shows right lower lobe infiltrates, left lung shows no acute changes. Renal ultrasound is negative for hydronephrosis, however nonobstructing right renal stone measuring 5mm and 3 simple cysts in the left kidney. Also medial records indicate that patient has a penile implant. renal us - renal cyst no hydro abd soft + IPP (coloplast type) normal (no erosion) 02/23/2018: CT Abdomen/Pelvis: +penile implant, No evidence of soft tissue abscess. Large left renal cyst. Small right pleural effusion and trace amount of left pleural fluid. a/P UTI no intervention needed Objective - Constitutional Vitals: Vital Signs - 12hr 02/24/18 02/24/18 02:56 08:04 Temperature 97.0 F L 98.0 F Pulse Rate 80 76 Respiratory 18 20 Rate Blood Pressure 127/56 141/67 O2 Sat by Pulse 100 100 Oximetry - Labs CBC & Chem 7: 02/24/18 05:53 02/24/18 05:53 Labs: Abnormal lab results 02/23/18 02/24/18 02/24/18 Range/Units 15:42 05:53 05:53 WBC 11.8 H (4.5-11.0) K/mm3 RBC 3.23 L (3.65-5.03) M/mm3 Hgb 10.1 L (11.8-15.2) gm/dl Hct 31.3 L (35.5-45.6) % MCV 97 H (84-94) fl RDW 12.8 L (13.2-15.2) % Sodium 149 H (137-145) mmol/L Chloride 116.1 H (98-107) mmol/L Calcium 8.2 L (8.4-10.2) mg/dL Phosphorus 2.30 L D (2.5-4.5) mg/dL C-Reactive Protein 18.80 H (0.00-1.30) mg/dL Medications & Allergies - Medications Allergies/Adverse Reactions: Allergies No Known Allergies Allergy (Verified 05/08/15 08:51) Home Medications: Home Medications Medication Instructions Recorded Confirmed Last Taken Type Aspirin EC [Aspirin Enteric Coated 81 mg PO QDAY #30 tablet 05/10/15 02/23/18 Unknown Rx TAB] Enoxaparin [Lovenox] 40 mg SUB-Q DAILY #7 syringe 05/10/15 02/23/18 Unknown Rx Losartan [Cozaar] 50 mg PO QDAY #30 tablet 05/10/15 02/23/18 Unknown Rx Active Medications: Generic Name Dose Route Start Last Admin Trade Name Freq PRN Reason Stop Dose Admin Acetaminophen 650 mg 02/20/18 21:20 02/23/18 02:53 Tylenol PO 650 mg Q4H PRN Administration Pain MILD(1-3)/Fever >100.5/PATEL Famotidine 10 mg 02/20/18 22:00 02/24/18 10:26 Pepcid IV 10 mg BID REKHA Administration Dextrose 1,000 mls @ 100 mls/hr 02/23/18 09:30 02/24/18 08:48 D5w IV 100 mls/hr DIRECT REKHA Administration Ceftriaxone Sodium 1 gm in 50 mls @ 100 mls/hr 02/23/18 10:00 02/24/18 10:25 Rocephin/Ns 1 Gm/50 Ml IV 100 mls/hr Q24HR REKHA Administration Protocol Vancomycin HCl 1 gm in 250 mls @ 166.667 mls/hr 02/23/18 14:00 02/23/18 19:00 Vancomycin/Ns 1 Gm/250 Ml IV Infused Q24H REKHA Infusion Potassium Phosphate 15 mmol/ 255 mls @ 63 mls/hr 02/24/18 08:48 02/24/18 11:38 Sodium Chloride IV 02/24/18 12:50 63 mls/hr ONCE ONE Administration Morphine Sulfate 2 mg 02/20/18 21:20 Morphine IV Q4H PRN Pain, Moderate (4-6) Ondansetron HCl 4 mg 02/20/18 21:20 Zofran IV Q8H PRN Nausea And Vomiting Sodium Chloride 10 ml 02/20/18 22:00 02/24/18 10:26 Sodium Chloride Flush Syringe 10 Ml IV 10 ml BID REKHA Administration Sodium Chloride 10 ml 02/20/18 21:20 Sodium Chloride Flush Syringe 10 Ml IV PRN PRN LINE FLUSH
[2018-02-24 15:05] VITALS: BP 131/64
--- NOTE | 2018-02-24 15:54 | Discharge Summary ---
Providers - Providers Date of Admission: 02/20/18 17:50 Attending physician: BOB BARBOUR MD 02/20/18 Consult to Case Management [CONS] Routine Services Needed at Discharge: Substance Abuse Technician Notified:: KRISHAN 02/20/18 18:57 Consult to Physician [CONS] Routine Comment: Consulting Provider: ADITYA WARD Physician Instructions: Reason For Exam: hypernatremia, acute renal failure 02/20/18 21:46 Consult to Dietitian/Nutrition [CONS] Routine Physician Instructions: Reason For Exam: Reason for Consult: Nutrition Recommendations Reason for Consult: Malnutrition 02/21/18 05:39 Consult to Wound/ET Nurse [CONS] Urgent Reason For Exam: wound eval 02/21/18 16:13 Speech Therapy Evaluation and Treat [CONS] Urgent Reason For Exam: swallow eval 02/23/18 08:19 Consult to Physician [CONS] Routine Comment: Consulting Provider: BETSY WALDROP Physician Instructions: Reason For Exam: sepsis, Multiple organism Primary care physician: [employer] WORK[employer] Hospitalization Reason for admission: sepsis Condition: Fair Hospital course: 72-year-old -[place] male resident of [facility] with hist ory of hypertension, cerebrovascular accident, diabetes and Dementia ,bed ridden sent from [place] for poor PO intake decreased responsiveness .No fever or chills.patient on pureed diet. No fever or Chills.on admission was noted to have hypernatermia and Acute kidney injury among other lab abnormalities. on admission patient was started on treatment of Sepsis, following conversation with family, Peg tube was declined and Hospice agreed to. Patient in the mean time was seen by both ID and Urology. Imaging study showed +penile implant, No evidence of soft tissue abscess. Large left renal cyst. Small right pleural effusion and trace amount of left pleural fluid. Imaging 02/20/2018 Chest: Right lower lobe infiltrates suspect pneumonia. Left lung demonstrates no acute changes. 02/20/2018 Renal Ultrasound: early chronic renal parenchymal disease. Nonobstructing right renal stone measuring 5 mm. 3 simple cysts in the left kidney.. No associated hydronephrosis Discharge Diagnosis Severe Sepsis with Shock Right lobar Pneumonia Acute Cystits with MRSA- Penial implant Acute On chronic Metabolic Encephalopathy Acute Kidney injury with vasomotor nephropathy Hypernatermia Lactic acidosis Proteus Bacteremia Large sacral decubitus ulcer- unstageable POA Failure to thrive Severe Protein calorie malnutrition Anorexia Bed bound HTN but currently hypotensive Disposition: DC/TX-03 SNF [facility] C[facility] Time spent for discharge: 35 mins Core Measure Documentation - Palliative Care Palliative Care/ Comfort Measures: Hospice Care - Core Measures Any of the following diagnoses?: none Exam - Physical Exam Narrative exam: VITAL SIGNS: Reviewed. GENERAL: The patient appeared chronically ill appearing. Vital signs as documented. HEAD: No signs of head trauma. marked temporal wasting. EYES: Pupils are equal. Extraocular motions intact. EARS: Hearing grossly intact. MOUTH: Oropharynx is normal. NECK: No adenopathy, no JVD. CHEST: Chest with diminshed breath sounds bilaterally. No wheezes, rales, or rhonchi. CARDIAC: Regular rate and rhythm. S1 and S2, without murmurs, gallops, or rubs. VASCULAR: Trace Edema. Peripheral pulses normal and equal in all extremities. ABDOMEN: Soft, without detectable tenderness. No sign of distention. No rebound or guarding, and no masses palpated. Bowel Sounds normal. MUSCULOSKELETAL: Good range of motion of all major joints. Extremities without clubbing, cyanosis or trace edema. NEUROLOGIC EXAM: Awake but unable to assess orientation PSYCHIATRIC: Unable to assess SKIN: sacral pressure ulcer - Constitutional Vitals: Temp Pulse Resp BP Pulse Ox 98.0 F 77 20 131/64 100 02/24/18 13:45 02/24/18 13:45 02/24/18 13:45 02/24/18 13:45 02/24/18 13:45 Plan Activity: advance as tolerated, fall precautions Diet: advance as tolerated (comfort feed ) Wound: per wound nurse instructions Additional Instructions: follow up per Hospice team Follow up with: PRIMARY CARE, [Primary Care Provider] - 3-5 Days Prescriptions: cephALEXin [Keflex] 500 mg PO QID #12 cap Doxycycline Hyclate [Doxycycline Hyclate TAB] 100 mg PO Q12HR #6 tab
== END 2018-02-24 18:30 | DRG 871 ==
LOC: ED 16:11 → 2B-ACE 17:50
PROVIDERS: ADMIT Internal Medicine; ATTEND Internal Medicine
DX: A41.9 Sepsis, unspecified organism (principal); N17.0 Acute kidney failure with tubular necrosis; E43 Unspecified severe protein-calorie malnutrition; G93.41 Metabolic encephalopathy; J18.1 Lobar pneumonia, unspecified organism; R65.21 Severe sepsis with septic shock; N30.00 Acute cystitis without hematuria; J90 Pleural effusion, not elsewhere classified; E87.0 Hyperosmolality and hypernatremia; Z68.1 Body mass index [BMI] 19.9 or less, adult; I69.159 Hemiplegia and hemiparesis following nontraumatic intracerebral hemorrhage affecting unspecified side; E11.9 Type 2 diabetes mellitus without complications; R62.7 Adult failure to thrive; F03.90 Unspecified dementia, unspecified severity, without behavioral disturbance, psychotic disturbance, mood disturbance, and anxiety; N28.1 Cyst of kidney, acquired; L89.150 Pressure ulcer of sacral region, unstageable; Z74.01 Bed confinement status; Z82.49 Family history of ischemic heart disease and other diseases of the circulatory system; Z79.899 Other long term (current) drug therapy; Z98.2 Presence of cerebrospinal fluid drainage device; Z79.84 Long term (current) use of oral hypoglycemic drugs
CPT/HCPCS: 36415; 71045; 74018; 74177; 76770; 80048; 80053; 81001; 82140; 82550; 82570; 82805; 82962; 83036; 83735; 84100; 84295; 84300; 85007; 85025; 85027; 85610; 85652; 85730; 86140; 87040; 87076; 87086; 87186; 93005; 93010; 96361; 96374; G0378; J0456; J0696; J1956; J3370; J7030; J7040; J7050; J7070; Q9967

== ENCOUNTER 2018-02-24 22:17 | Emergency (ER) | payer MEDICARE ==
--- NOTE | 2018-02-24 23:46 | Emergency Department Report ---
ED General Adult HPI - General Chief complaint: Medical Clearance Stated complaint: MEDICAL Time Seen by Provider: 02/24/18 23:46 Source: EMS Mode of arrival: Stretcher Limitations: No Limitations - History of Present Illness Initial comments: Patient was sent from the residential for Peg tube placement. Patient is non verbal and does not communicate. He does not follow commands. Patient is unable to give medical history. - Related Data Previous Rx's Medication Instructions Recorded Last Taken Type Aspirin EC [Aspirin Enteric Coated 81 mg PO QDAY #30 tablet 05/10/15 Unknown Rx TAB] Enoxaparin [Lovenox] 40 mg SUB-Q DAILY #7 syringe 05/10/15 Unknown Rx Losartan [Cozaar] 50 mg PO QDAY #30 tablet 05/10/15 Unknown Rx Doxycycline Hyclate [Doxycycline 100 mg PO Q12HR #6 tab 02/24/18 Unknown Rx Hyclate TAB] cephALEXin [Keflex] 500 mg PO QID #12 cap 02/24/18 Unknown Rx Allergies Allergy/AdvReac Type Severity Reaction Status Date / Time No Known Allergies Allergy Verified 05/08/15 08:51 ED Review of Systems ROS: Stated complaint: MEDICAL Other details as noted in HPI Comment: Unobtainable due to pts medical conditions (Patient is non verbal.) Constitutional: chills, fever ED Past Medical Hx - Past Medical History Previous Medical History?: Yes Hx Hypertension: Yes Hx CVA: Yes (x5) Hx Diabetes: Yes Hx Dementia: Yes Additional medical history: subarachnoid hemorrhage - Surgical History Past Surgical History?: Yes - Social History Smoking Status: Unknown if ever smoked Substance Use Type: None - Medications Home Medications: Home Medications Medication Instructions Recorded Confirmed Last Taken Type Aspirin EC [Aspirin Enteric Coated 81 mg PO QDAY #30 tablet 05/10/15 02/23/18 Unknown Rx TAB] Enoxaparin [Lovenox] 40 mg SUB-Q DAILY #7 syringe 05/10/15 02/23/18 Unknown Rx Losartan [Cozaar] 50 mg PO QDAY #30 tablet 05/10/15 02/23/18 Unknown Rx Doxycycline Hyclate [Doxycycline 100 mg PO Q12HR #6 tab 02/24/18 Unknown Rx Hyclate TAB] cephALEXin [Keflex] 500 mg PO QID #12 cap 02/24/18 Unknown Rx ED Physical Exam - General Limitations: Altered Mental Status, Other (Patient is non verbal and doees not make eye contact or follow commands.) General appearance: alert, in no apparent distress - Head Head exam: Present: normal inspection - Eye Eye exam: Present: normal appearance - ENT ENT exam: Present: other (NG tube in the nose) - Neck Neck exam: Present: normal inspection - Respiratory Respiratory exam: Present: normal lung sounds bilaterally. Absent: respiratory distress - Cardiovascular Cardiovascular Exam: Present: regular rate, normal rhythm, normal heart sounds - GI/Abdominal GI/Abdominal exam: Present: soft, normal bowel sounds. Absent: distended, tenderness, guarding, rebound - Rectal Rectal exam: Present: deferred - Extremities Exam Extremities exam: Present: other (contracted and artrophied.) - Neurological Exam Neurological exam: Present: alert - Psychiatric Psychiatric exam: Present: flat affect - Skin Skin exam: Present: warm, dry ED Course Vital Signs 02/24/18 02/24/18 02/24/18 23:20 23:23 23:30 Temperature 97.6 F Pulse Rate 89 86 86 Respiratory 15 17 18 Rate Blood Pressure 104/55 Blood Pressure 104/56 [Right] O2 Sat by Pulse 91 Oximetry 02/24/18 02/25/18 02/25/18 23:45 00:00 00:15 Temperature Pulse Rate 90 96 H 93 H Respiratory 16 15 16 Rate Blood Pressure 109/58 109/58 120/60 Blood Pressure [Right] O2 Sat by Pulse Oximetry 02/25/18 02/25/18 02/25/18 00:30 00:45 00:56 Temperature Pulse Rate 91 H 93 H Respiratory 16 16 16 Rate Blood Pressure 120/60 117/64 Blood Pressure [Right] O2 Sat by Pulse Oximetry ED Medical Decision Making - Lab Data Result diagrams: 02/24/18 23:58 02/24/18 23:58 Lab Results 02/24/18 02/24/18 02/24/18 Range/Units 23:58 23:58 23:58 WBC 11.2 H (4.5-11.0) K/mm3 RBC 3.53 L (3.65-5.03) M/mm3 Hgb 10.9 L (11.8-15.2) gm/dl Hct 33.6 L (35.5-45.6) % MCV 95 H (84-94) fl MCH 31 (28-32) pg MCHC 32 (32-34) % RDW 13.1 L (13.2-15.2) % Plt Count 250 (140-440) K/mm3 Lymph % (Auto) 9.1 L (13.4-35.0) % Millard % (Auto) 7.3 (0.0-7.3) % Eos % (Auto) 0.9 (0.0-4.3) % Baso % (Auto) 0.7 (0.0-1.8) % Lymph # 1.0 L (1.2-5.4) K/mm3 Millard # 0.8 (0.0-0.8) K/mm3 Eos # 0.1 (0.0-0.4) K/mm3 Baso # 0.1 (0.0-0.1) K/mm3 Seg Neutrophils % 82.0 H (40.0-70.0) % Seg Neutrophils # 9.2 H (1.8-7.7) K/mm3 PT 14.0 (12.2-14.9) Sec. INR 1.04 (0.87-1.13) APTT 20.0 L (24.2-36.6) Sec. Sodium 146 H (137-145) mmol/L Potassium 3.8 (3.6-5.0) mmol/L Chloride 109.2 H (98-107) mmol/L Carbon Dioxide 24 (22-30) mmol/L Anion Gap 17 mmol/L BUN 13 (9-20) mg/dL Creatinine 0.7 L (0.8-1.5) mg/dL Estimated GFR > 60 ml/min BUN/Creatinine Ratio 19 % Glucose 74 L (75-100) mg/dL Calcium 8.7 (8.4-10.2) mg/dL Total Bilirubin 1.30 H (0.1-1.2) mg/dL AST 90 H (5-40) units/L ALT 137 H (7-56) units/L Alkaline Phosphatase 123 (35-129) units/L Total Protein 6.7 D (6.3-8.2) g/dL Albumin 2.4 L (3.9-5) g/dL Albumin/Globulin Ratio 0.6 % Urine Bilirubin (Negative) Urine RBC (Auto) (0.0-6.0) /HPF U Epithel Cells (Auto) (0-13.0) /HPF 02/25/18 Range/Units 00:46 WBC (4.5-11.0) K/mm3 RBC (3.65-5.03) M/mm3 Hgb (11.8-15.2) gm/dl Hct (35.5-45.6) % MCV (84-94) fl MCH (28-32) pg MCHC (32-34) % RDW (13.2-15.2) % Plt Count (140-440) K/mm3 Lymph % (Auto) (13.4-35.0) % Millard % (Auto) (0.0-7.3) % Eos % (Auto) (0.0-4.3) % Baso % (Auto) (0.0-1.8) % Lymph # (1.2-5.4) K/mm3 Millard # (0.0-0.8) K/mm3 Eos # (0.0-0.4) K/mm3 Baso # (0.0-0.1) K/mm3 Seg Neutrophils % (40.0-70.0) % Seg Neutrophils # (1.8-7.7) K/mm3 PT (12.2-14.9) Sec. INR (0.87-1.13) APTT (24.2-36.6) Sec. Sodium (137-145) mmol/L Potassium (3.6-5.0) mmol/L Chloride (98-107) mmol/L Carbon Dioxide (22-30) mmol/L Anion Gap mmol/L BUN (9-20) mg/dL Creatinine (0.8-1.5) mg/dL Estimated GFR ml/min BUN/Creatinine Ratio % Glucose (75-100) mg/dL Calcium (8.4-10.2) mg/dL Total Bilirubin (0.1-1.2) mg/dL AST (5-40) units/L ALT (7-56) units/L Alkaline Phosphatase (35-129) units/L Total Protein (6.3-8.2) g/dL Albumin (3.9-5) g/dL Albumin/Globulin Ratio % Urine Bilirubin Neg (Negative) Urine RBC (Auto) 4.0 (0.0-6.0) /HPF U Epithel Cells (Auto) < 1.0 (0-13.0) /HPF - Medical Decision Making The discharge note by Dr Weinberg yesterday showed that the patients family declined PEG tube placement and patient was put on hospice. Patient will be discharged back to the residential. Critical care attestation.: If time is entered above; I have spent that time in minutes in the direct care of this critically ill patient, excluding procedure time. ED Disposition Clinical Impression: Persist vegetative state Disposition: DC/TX-70 ANOTHER TYPE HLTHCARE Is pt being admited?: No Does the pt Need Aspirin: No Condition: Stable Additional Instructions: Patients family declined PEG tube placement per discharge summary on 02/23/2018. Referrals: PRIMARY CAREMD [Primary Care Provider] - 3-5 Days Time of Disposition: 01:20
[2018-02-25 00:25] LABS: Basophils # (Auto) 0.1 K/mm3 (0.0-0.1); Basophils % (Auto) 0.7 % (0.0-1.8); Eosinophils # (Auto) 0.1 K/mm3 (0.0-0.4); Eosinophils % (Auto) 0.9 % (0.0-4.3); Hematocrit 33.6 % (35.5-45.6); Hemoglobin 10.9 gm/dl (11.8-15.2); Lymphocytes % (Auto) 9.1 % (13.4-35.0); Mean Corpuscular HGB Conc 32 % (32-34); Mean Corpuscular Volume 95 fl (84-94); Monocytes # (Auto) 0.8 K/mm3 (0.0-0.8); Monocytes % (Auto) 7.3 % (0.0-7.3); Platelet Count 250 K/mm3 (140-440); Red Blood Count 3.53 M/mm3 (3.65-5.03); Red Cell Distribution Width 13.1 % (13.2-15.2)
[2018-02-25 00:38] LABS: INR 1.04 (0.87-1.13)
[2018-02-25 00:45] LABS: BUN/Creatinine Ratio 19; Blood Urea Nitrogen 13 mg/dL (9-20)
[2018-02-25 00:46] LABS: Alanine Aminotransferase 137 units/L (7-56); Albumin 2.4 g/dL (3.9-5); Calcium 8.7 mg/dL (8.4-10.2); Hemolysis Index 6
[2018-02-25 01:16] LABS: Amorphous Crystals,Urine Few; Bilirubin,Urine NEG (Negative); Blood,Urine MOD (Negative); Color,Urine Yellow (Yellow); Mucus,Urine FEW /HPF; Protein,Urine <15 mg/dL mg/dL (Negative)
[2018-02-25 12:18] VITALS: BP 129/63
== END 2018-02-25 13:11 ==
LOC: ED 22:17
DX: R40.3 Persistent vegetative state (principal); I10 Essential (primary) hypertension; F03.90 Unspecified dementia, unspecified severity, without behavioral disturbance, psychotic disturbance, mood disturbance, and anxiety; Z86.73 Personal history of transient ischemic attack (TIA), and cerebral infarction without residual deficits; Z86.79 Personal history of other diseases of the circulatory system
CPT/HCPCS: 36415; 80053; 81001; 85025; 85610; 85730